=== PATIENT | male | born 1955 | race Hispanic/Latino ===

== ENCOUNTER 2017-06-11 21:39 | Inpatient (IN) | payer MEDICAID, OTHER ==
[2017-06-11] MEDS ORDERED: Naloxone 0.4 mg/ml Inj (Adult) IVP STA (22:00)
--- NOTE | 2017-06-11 22:07 | ED PDOC ---
Arrival/HPI - General Chief Complaint: Altered Mental Status Time Seen by Provider: 06/11/17 21:50 Historian: Patient - History of Present Illness Narrative History of Present Illness (Text): 06/11/17 22:04 William Verma is a 61 year old male, with a history of Parkinson's disease, seizures, and anxiety, was brought to emergency department by EMS for possible overdose on Percocet and Benzodiazepines. Patient was found altered, sitting in front of [employer]. ROS and HPI limited due to patient's condition. Time/Duration: Prior to Arrival Severity Level: Mild Activities at Onset: Light Context: Street Past Medical History - Provider Review Nursing Documentation Reviewed: Yes - Infectious Disease Hx of Infectious Diseases: None - Past Medical History Past Medical History: No Previous - Cardiac Hx Cardiac Disorders: No Hx Hypertension: No - Pulmonary Hx Tuberculosis: No - Neurological Hx Parkinson's Disease: Yes Hx Seizures: Yes - Hematological/Oncological Hx Cancer: No - Musculoskeletal/Rheumatological Hx Back Pain: Yes Hx Falls: No - Genitourinary/Gynecological Hx Sexually Transmitted Diseases: No - Psychiatric Hx Anxiety: Yes Hx Substance Use: Yes - Past Surgical History Past Surgical History: Non-Contributing - Surgical History Hx Orthopedic Surgery: Yes (Right leg) - Anesthesia Hx Anesthesia: Yes Hx Anesthesia Reactions: No Hx Malignant Hyperthermia: No - Suicidal Assessment Feels Threatened In Home Enviroment: No Family/Social History - Physician Review Nursing Documentation Reviewed: Yes Family/Social History: No Known Family HX Smoking Status: Heavy Smoker > 10 Cigarettes Daily Hx Alcohol Use: No Hx Substance Use: Yes Substance used: Heroin Allergies/Home Meds Allergies/Adverse Reactions: Allergies No Known Allergies Allergy (Verified 01/07/17 13:52) Home Medications: Home Meds Medication Instructions Recorded Confirmed Acetaminophen/Oxycodone Hydr 1 tab PO TID 05/25/17 05/25/17 [Percocet 10/325 mg Tab] Alprazolam [Xanax] 2 mg PO QID 05/25/17 06/11/17 Review of Systems - Review of Systems Systems not reviewed;Unavailable: Altered Mental Status Physical Exam Vital Signs Reviewed: Yes Vital Signs Pulse Resp BP Pulse Ox 06/12/17 01:46 59 L 16 124/74 100 06/11/17 23:45 55 L 15 106/74 100 06/11/17 22:36 61 16 103/66 99 Temperature: Afebrile Blood Pressure: Normal Pulse: Regular Respiratory Rate: Normal Appearance: Positive for: Comfortable Pain Distress: None Mental Status: No: Agitated, Lethargic, Comatose - Systems Exam Head: Present: Atraumatic, Normocephalic Pupils: Present: PERRL, Pinpoint Conjunctiva: Present: Normal Respiratory/Chest: Present: Clear to Auscultation, Good Air Exchange. No: Respiratory Distress, Accessory Muscle Use Cardiovascular: Present: Regular Rate and Rhythm, Normal S1, S2. No: Murmurs Neurological: Present: GCS=15, CN II-XII Intact, Speech Normal Skin: Present: Warm, Dry, Normal Color. No: Rashes Psychiatric: Present: Alert, Oriented x 3 Medical Decision Making ED Course and Treatment: 06/11/17 22:08 Impression: A 61 year old male who presents to the emergency department for evaluation of possible drug overdose. Plan: -- CT Head -- EKG -- Labs -- Alcohol level -- Drug screen -- Chest X-ray -- Urinalysis -- Reassess and disposition Progress Notes: 06/11/17 23:46 EXAM: CT Head Without Intravenous Contrast FINDINGS: Brain: Minimal atrophy. Minimal encephalomalacia vs artifact LEFT frontal region. No intracranial hemorrhage. No mass. No definite edema. Ventricles: No hydrocephalus. Bones/joints: No acute fracture. Soft tissues: Unremarkable. Sinuses: Scattered minimal mucosal thickening. Mastoid air cells: No mastoid effusion. Orbits: Unremarkable as visualized. IMPRESSION: 1. No definite acute intracranial abnormality. Acute infarction may be CT occult within first 24 hours. If a focal deficit persists, consider followup CT or MRI for further evaluation. 2. Incidental/non-acute findings are described above 06/12/17 00:[address] Correa who is aware agrees with the plan to admit patient to the ICU for overdose. Pt was evaluated by , observer electrical prospecting, who accepts patient to the ICU. 06/12/17 01:25 EKG reviewed by me: Sinus Bradycardia @ 53 bpm. Normal [place]. Normal interval. - Lab Interpretations Lab Results: 06/11/17 22:15 06/11/17 22:15 Lab Results 06/11/17 23:50: Urine Opiates Screen Positive H, Urine Methadone Screen Negative , Ur Barbiturates Screen Negative, Ur Phencyclidine Scrn Negative, Ur Amphetamines Screen Negative, U Benzodiazepines Scrn Positive H, U Oth Cocaine Metabols Negative, U Cannabinoids Screen Negative 06/11/17 23:47: pCO2 45, pO2 66.0 L, HCO3 24.8, ABG pH 7.35, ABG Total CO2 26.2 , ABG O2 Saturation 95.8, ABG Base Excess -1.1, ABG Potassium 3.0 L, Glucose 135 H, Lactate 1.2, FiO2 21.0, Sodium 145.0, Chloride 117.0 H, Arterial Blood Potassium 3.0 L 06/11/17 22:15: Alcohol, Quantitative < 10 06/11/17 22:15: Salicylates < 1 L, Acetaminophen < 10.0 L 06/11/17 22:15: Sodium 141, Potassium 4.0, Chloride 106, Carbon Dioxide 27, Anion Gap 12, BUN 21, Creatinine 0.9, Est GFR ( Amer) > 60, Est GFR (Non- Af Amer) > 60, Random Glucose 152 H, Calcium 8.6, Total Bilirubin 0.4, AST 65 H , ALT 32, Alkaline Phosphatase 58, Total Creatine Kinase 1085 H, CK-MB (CK-2) 24.9 H, CK-MB (CK-2) % 2.3 L, Total Protein 6.7, Albumin 3.6, Globulin 3.0, Albumin/Globulin Ratio 1.2 06/11/17 22:15: Urine Color Yellow, Urine Appearance Clear, Urine pH 5.5, Ur Specific [place] >= 1.030, Urine Protein Negative, Urine Glucose (UA) Negative, Urine Ketones Negative, Urine Blood Large H, Urine Nitrate Negative, Urine Bilirubin Negative, Urine Urobilinogen 0.2, Ur Leukocyte Esterase Negative, Urine RBC 5 - 10, Urine WBC 0 - 2, Ur Epithelial Cells None, Urine Bacteria Mod 06/11/17 22:15: WBC 7.1, RBC 3.69, Hgb 11.8 L, Hct 34.6 L, MCV 93.8, MCH 32.0, MCHC 34.1, RDW 13.7, Plt Count 168, MPV 10.1, Gran % 62.2, Lymph % (Auto) 26.5, Jack % (Auto) 6.3 H, Eos % (Auto) 4.2, Baso % (Auto) 0.8, Gran # 4.40, Lymph # 1.9, Jack # 0.5, Eos # 0.3, Baso # 0.06 06/11/17 21:57: POC Glucose (mg/dL) 131 H I have reviewed the lab results: Yes - RAD Interpretation Radiology Orders: 06/11/17 22:00 CHEST PORTABLE [RAD] Stat 06/11/17 22:48 HEAD W/O CONTRAST [CT] Stat - EKG Interpretation Interpreted by ED Physician: Yes Type: 12 lead EKG - Medication Orders Current Medication Orders: Folic Acid 1 mg/ Thiamine HCl 100 mg/ Multivitamins/Vitamin C 10 ml/ Dextrose 1 ,011.2 mls @ 100 mls/hr IV .Q10H7M [facility] Last Admin: 06/15/17 00:18 Dose: 100 mls/hr Ketorolac Tromethamine (Toradol) 15 mg IM Q6 PRN PRN Reason: Pain, moderate (4-7) Stop: 06/18/17 07:47 Last Admin: 06/15/17 16:50 Dose: 15 mg Quetiapine Fumarate (Seroquel) 50 mg PO HS PRN; Protocol PRN Reason: psychosis/agitation Last Admin: 06/15/17 21:34 Dose: 50 mg Discontinued Medications Naloxone HCl 10 mg/ Sodium (Chloride) 1,025 mls @ 61.5 mls/hr IV .[id number] ONE PRN Reason: 0.6 MG/HR Stop: 06/12/17 14:39 Last Admin: 06/11/17 23:18 Dose: Sodium Chloride (Sodium Chloride 0.9%) 1,000 mls @ 125 mls/hr IV .Q8H [facility] Last Admin: 06/12/17 01:38 Dose: 125 mls/hr Sodium Chloride (Sodium Chloride 0.9%) 1,000 mls @ 175 mls/hr IV .Q5H43M [facility] Last Admin: 06/12/17 09:33 Dose: 175 mls/hr Naloxone HCl (Narcan) 0.4 mg IVP STAT STA Stop: 06/11/17 22:01 Last Admin: 06/11/17 22:11 Dose: 0.4 mg - Scribe Statement The provider has reviewed the documentation as recorded by the Scribe Sasha Muthuraman Provider Attestation: Provider Scribe Attestation: All medical record entries made by the Scribe were at my direction and personally dictated by me. I have reviewed the chart and agree that the record accurately reflects my personal performance of the history, physical exam, medical decision making, and the department course for this patient. I have also personally directed, reviewed, and agree with the discharge instructions and disposition. Disposition/Present on Arrival - Present on Arrival Any Indicators Present on Arrival: No History of DVT/PE: No History of Uncontrolled Diabetes: No Urinary Catheter: No History of Decub. Ulcer: No History Surgical Site Infection Following: None - Disposition Have Diagnosis and Disposition been Completed?: Yes Diagnosis: Opiate abuse, continuous, Narcotic overdose Disposition: HOSPITALIZED Disposition Time: 00:45 Patient Problems: Current Active Problems Problem Status Onset Drug overdose, multiple drugs Resolved Condition: SERIOUS
[2017-06-11 22:33] LABS: BASO # 0.06 K/mm3 (0.0-2.0); BASO % 0.8 % (0.0-3.0); EOS # 0.3 (0.0-0.7); EOS % 4.2 % (1.5-5.0); GRAN % 62.2 % (50.0-68.0); HEMOGLOBIN 11.8 gm/dL (14.0-18.0); LYMPH # 1.9 (1.2-3.4); LYMPH % 26.5 % (22.0-35.0); MEAN CELL VOLUME 93.8 fL (80.0-105.0); MEAN CORPUSCULAR HGB CONC 34.1 g/dl (31.0-37.0); MEAN PLATELET VOLUME 10.1 fl (7.0-11.0); MONO # 0.5 (0.1-0.6); MONO % 6.3 % (1.0-6.0); PLATELET COUNT 168 10^3/uL (120.0-450.0); RBC 3.69 10^6/uL (3.5-6.1); RED CELL DISTRIBUTION WIDTH 13.7 % (11.5-14.5); WHITE BLOOD COUNT 7.1 10^3/ul (4.5-11.0)
[2017-06-11 22:37] LABS: ALB/GLOB RATIO 1.2 (1.1-1.8); ALBUMIN 3.6 g/dL (3.0-4.8); ALT/SGPT 32 U/L (7-56); AST/SGOT 65 U/L (15-59); BLOOD UREA NITROGEN 21 mg/dL (7-21); CALCIUM 8.6 mg/dL (8.4-10.5); GFR AFRICAN-AMERICAN > 60; GFR NON-AFRICAN AMERICAN > 60; PH,URINE 5.5 (4.7-8.0); SALICYLATE < 1 mg/dL (2.0-20.0); URINE BILIRUBIN NEGATIVE (NEGATIVE); URINE BLOOD LARGE (NEGATIVE); URINE GLUCOSE (UA) NEGATIVE (NEGATIVE); URINE LEUKOCYTE ESTERASE NEGATIVE Leu/uL (NEGATIVE); URINE NITRATE NEGATIVE (NEGATIVE); URINE PROTEIN NEGATIVE mg/dL (<30 mg/dL); URINE UROBILINOGEN 0.2 E.U./dL (<1 E.U./dL)
[2017-06-11 22:38] LABS: ACETAMINOPHEN < 10.0 ug/ml (10.0-20.0); URINE APPEARANCE CLEAR (CLEAR); URINE COLOR YELLOW (YELLOW)
[2017-06-11 22:53] LABS: CK MB% 2.3 % (2.5-3.0); CK-MB 24.9 ng/mL (0.0-3.6)
[2017-06-11 23:09] LABS: URINE BACTERIA MOD (NEG); URINE WBC 0 - 2 /hpf (0-6)
--- NOTE | 2017-06-11 23:37 | CT ---
EXAM: CT Head Without Intravenous Contrast CLINICAL HISTORY: 61 years old, male; Signs and symptoms; Altered mental status/memory loss; Confusion or disorientation; Additional info: AMS TECHNIQUE: Axial computed tomography images of the head/brain without intravenous contrast. This CT exam was performed using one or more of the following dose reduction techniques: automated exposure control, adjustment of the mA and/or kV according to patient size, and/or use of iterative reconstruction technique. COMPARISON: No relevant prior studies available. FINDINGS: Brain: Minimal atrophy. Minimal encephalomalacia vs artifact LEFT frontal region. No intracranial hemorrhage. No mass. No definite edema. Ventricles: No hydrocephalus. Bones/joints: No acute fracture. Soft tissues: Unremarkable. Sinuses: Scattered minimal mucosal thickening. Mastoid air cells: No mastoid effusion. Orbits: Unremarkable as visualized. IMPRESSION: 1. No definite acute intracranial abnormality. Acute infarction may be CT occult within first 24 hours. If a focal deficit persists, consider followup CT or MRI for further evaluation. 2. Incidental/non-acute findings are described above.
[2017-06-11 23:52] LABS: ARTERIAL BLOOD GAS HCO3 24.8 mmol/L (21-28); ARTERIAL BLOOD GAS O2 SAT 95.8 % (95-98); ARTERIAL BLOOD GAS PCO2 45 mm/Hg (35-45); ARTERIAL BLOOD GAS PH 7.35 (7.35-7.45); ARTERIAL BLOOD GAS TCO2 26.2 mmol.L (22-28)
[2017-06-12 00:38] LABS: BARBITURATES, UR NEGATIVE (NEGATIVE); BENZODIAZEPINES, UR POSITIVE (NEGATIVE); OPIATES, UR POSITIVE (NEGATIVE); PHENCYCLIDINE, UR NEGATIVE (NEGATIVE)
[2017-06-12] MEDS ORDERED: Sodium Chloride 0.9% 1,000 ML IV SCH (01:30)
--- NOTE | 2017-06-12 02:21 | CP.PCM.CON ---
<Usama Bose - Last Filed: 06/12/17 04:26> History of Present Illness - History of Present Illness History of Present Illness: CC: Apparent Overdose Patient is a 61 year old male with a PMHX of opioid use disorder, eTOH use disorder, sedative/hypnotic use disorder, parkinson's disease, seizures, and anxiety who was brought in by EMS for evaluation of altered mental status. Patient seen and examined at bedside with attending. Patient is sleeping and cannot be awoken at the time of physical exam despite both verbal and painful stimuli. No friends or family were available at bedside to gain further information. As per Ed chart, the patient was found altered in front a [employer] store secondary to a suspected overdose on percocet and benzodiazepines. ROS and detailed HPI cannot be attained at this time due to patient's current condition. PMHx: as per previous records- Hpl, COPD, Opioid Use Disorder, ETOH use disorder , Sedative, hypnotic use disorder,Parkinson's disease, seizures, and anxiety PSHx: as per Ed chart- right leg orthopedic surgery Allergies: as per previous records- NKDA Family Hx: unknown Medications: please see MAR Review of Systems - Review of Systems Review of Systems: ROS cannot be attained at this time due to patients altered mental status Past Patient History - Infectious Disease Hx of Infectious Diseases: None - Past Medical History & Family History Past Medical History?: Yes - Past Social History Smoking Status: Heavy Smoker > 10 Cigarettes Daily - CARDIAC Hx Cardiac Disorders: No Hx Hypertension: No - PULMONARY Hx Tuberculosis: No - NEUROLOGICAL Hx Parkinson's Disease: Yes Hx Seizures: Yes - HEMATOLOGICAL/ONCOLOGICAL Hx Cancer: No - MUSCULOSKELETAL/RHEUMATOLOGICAL Hx Back Pain: Yes Hx Falls: No - GENITOURINARY/GYNECOLOGICAL Hx Sexually Transmitted Disorders: No - PSYCHIATRIC Hx Anxiety: Yes Hx Substance Use: Yes - SURGICAL HISTORY Hx Orthopedic Surgery: Yes (Right leg) - ANESTHESIA Hx Anesthesia: Yes Hx Anesthesia Reactions: No Hx Malignant Hyperthermia: No Meds Allergies/Adverse Reactions: Allergies Allergy/AdvReac Type Severity Reaction Status Date / Time No Known Allergies Allergy Verified 01/07/17 13:52 - Medications Medications: Current Medications Naloxone HCl 10 mg/ Sodium (Chloride) 1,025 mls @ 61.5 mls/hr IV .[id number] ONE PRN Reason: 0.6 MG/HR Stop: 06/12/17 14:39 Last Admin: 06/11/17 23:18 Dose: Not Given Sodium Chloride (Sodium Chloride 0.9%) 1,000 mls @ 125 mls/hr IV .Q8H [facility] Last Admin: 06/12/17 01:38 Dose: 125 mls/hr Physical Exam - Constitutional Appears: No Acute Distress Additional comments: patient is resting in bed, cannot be awakened despite both verbal and painful stimuli - Head Exam Head Exam: ATRAUMATIC, NORMAL INSPECTION - Eye Exam Additional comments: patient is resting in bed, cannot be awakened despite both verbal and painful stimuli - Neck Exam Neck exam: Positive for: Normal Inspection. Negative for: Thyromegaly - Respiratory Exam Respiratory Exam: Clear to Auscultation Bilateral. absent: Rales, Rhonchi, Wheezes - Cardiovascular Exam Cardiovascular Exam: REGULAR RHYTHM, +S1, +S2 - GI/Abdominal Exam GI & Abdominal Exam: Normal Bowel Sounds, Soft - Extremities Exam Extremities exam: Positive for: normal inspection, pedal pulses present - Neurological Exam Neurological exam: Altered Additional comments: could not be assessed at time of exam due to AMS patient is resting in bed, cannot be awakened despite both verbal and painful stimuli - Psychiatric Exam Additional comments: could not be assessed at time of exam due to AMS - Skin Skin Exam: Warm Results - Vital Signs Recent Vital Signs: Last Vital Signs Temp Pulse 59 L 06/12/17 01:46 Resp 16 06/12/17 01:46 BP 124/74 06/12/17 01:46 Pulse Ox 100 06/12/17 01:46 - Labs Result Diagrams: 06/12/17 03:34 06/12/17 03:34 Assessment & Plan - Assessment and Plan (Free Text) Assessment: Patient is a 61 year old male with a PMHX of opioid use disorder, eTOH use disorder, sedative/hypnotic use disorder, parkinson's disease, seizures, and anxiety who is being admitted for evaluation and treatment of an overdose. 1. Overdose - ICU admit - Neuro checks q1 - Vitals q1 - head of bed above 30 degrees - fall precautions - seizure precautions - blood culture - urine culture - urinalysis - naloxone given in ED - UDS reviewed- positive for benzodiazepines and opiates - hold sedative home medications 2. Anemia - hgb/hct 11.8/ 34.6 - fecal occult blood test - monitor closely with daily CBC 3. Hypoxemia - ABG reviewed - supplemental O2 2L via NC 4. Total CK elevated - IVF NS - recheck CK in AM 5. History of Seizure disorder - seizure precautions 5. Ppx - subq heparin - pantoprazole Patient seen, evaluated, and discussed with attending, Dr. Martinez. <Michelle JURADO,Nicho - Last Filed: 06/15/17 08:32> Meds - Medications Medications: Current Medications Folic Acid 1 mg/ Thiamine HCl 100 mg/ Multivitamins/Vitamin C 10 ml/ Dextrose 1 ,011.2 mls @ 100 mls/hr IV .Q10H7M [facility] Last Admin: 06/15/17 00:18 Dose: 100 mls/hr Ketorolac Tromethamine (Toradol) 15 mg IM Q6 PRN PRN Reason: Pain, moderate (4-7) Stop: 06/18/17 07:47 Last Admin: 06/15/17 04:15 Dose: 15 mg Quetiapine Fumarate (Seroquel) 50 mg PO HS PRN; Protocol PRN Reason: psychosis/agitation Last Admin: 06/14/17 21:10 Dose: 50 mg Results - Vital Signs Recent Vital Signs: Last Vital Signs Temp 99.1 F 06/15/17 02:15 Pulse 67 06/15/17 02:15 Resp 20 06/15/17 02:15 BP 127/85 06/15/17 02:15 Pulse Ox 98 06/15/17 02:15 - Labs Result Diagrams: 06/15/17 05:40 06/15/17 05:40 Labs: Laboratory Results - last 24 hr 06/15/17 06/15/17 05:40 05:40 WBC 7.4 D RBC 3.93 Hgb 12.3 L Hct 36.2 L MCV 92.1 MCH 31.3 MCHC 34.0 RDW 13.5 Plt Count 176 MPV 10.2 Gran % 74.4 H Lymph % (Auto) 16.9 L [place] % (Auto) 6.3 H Eos % (Auto) 2.3 Baso % (Auto) 0.1 Gran # 5.53 Lymph # 1.3 [place] # 0.5 Eos # 0.2 Baso # 0.01 Sodium 141 Potassium 3.8 Chloride 106 Carbon Dioxide 28 Anion Gap 11 BUN 13 Creatinine 0.8 Est GFR ( Amer) > 60 Est GFR (Non-Af Amer) > 60 Random Glucose 108 Calcium 8.5 Total Bilirubin 0.3 AST 53 ALT 60 H Alkaline Phosphatase 58 Total Protein 6.2 Albumin 3.5 Globulin 2.7 Albumin/Globulin Ratio 1.3 Attending/Attestation - Attestation I have personally seen and examined this patient.: Yes I have fully participated in the care of the patient.: Yes I have reviewed all pertinent clinical information: Yes Notes (Text): -I agree with the above consult note completed by the resident physician, with the following additions and/or changes: The patient is a 61 year old man with a history of chronic opioid abuse, chronic ETOH abuse, Parkinson's disease, seizure disorder and anxiety disorder, who presents with acute opioid intoxication with severe AMS/somnolence (In the ED, patient unarousable but able to protect airway). Will monitor patient in the ICU with hourly neuro checks, IVF's, NPO, HOB>30 and fall and seizure precautions.
[2017-06-12 03:04] VITALS: BMI 22.0
[2017-06-12 03:39] LABS: BASO # 0.03 K/mm3 (0.0-2.0); BASO % 0.5 % (0.0-3.0); EOS # 0.3 (0.0-0.7); GRAN # 3.44 (1.4-6.5); GRAN % 61.3 % (50.0-68.0); HEMOGLOBIN 11.4 gm/dL (14.0-18.0); LYMPH # 1.4 (1.2-3.4); LYMPH % 25.7 % (22.0-35.0); MEAN CELL VOLUME 94.9 fL (80.0-105.0); MEAN CORPUSCULAR HEMOGLOBIN 32.2 pg (25.0-35.0); MEAN CORPUSCULAR HGB CONC 33.9 g/dl (31.0-37.0); MEAN PLATELET VOLUME 9.8 fl (7.0-11.0); MONO # 0.4 (0.1-0.6); MONO % 7.5 % (1.0-6.0); PLATELET COUNT 155 10^3/uL (120.0-450.0); RBC 3.54 10^6/uL (3.5-6.1); WHITE BLOOD COUNT 5.6 10^3/ul (4.5-11.0)
[2017-06-12 03:52] LABS: ALB/GLOB RATIO 1.2 (1.1-1.8); ALBUMIN 3.3 g/dL (3.0-4.8); ALT/SGPT 37 U/L (7-56); AST/SGOT 74 U/L (15-59); BLOOD UREA NITROGEN 19 mg/dL (7-21); CALCIUM 8.3 mg/dL (8.4-10.5); GFR AFRICAN-AMERICAN > 60; GFR NON-AFRICAN AMERICAN > 60
[2017-06-12 04:07] LABS: CK MB% 2.4 % (2.5-3.0); CK-MB 32.3 ng/mL (0.0-3.6)
[2017-06-12] MEDS: Sodium Chloride 0.9% 1,000 ML IV SCH ×2 (05:30→09:33)
--- NOTE | 2017-06-12 07:49 | RAD ---
HISTORY: Altered mental status COMPARISON: 07/19/2015 FINDINGS: LUNGS: There are increased interstitial markings in both lungs. No focal consolidation. PLEURA: No significant pleural effusion identified, no pneumothorax apparent. CARDIOVASCULAR: Normal. OSSEOUS STRUCTURES: No significant abnormalities. VISUALIZED UPPER ABDOMEN: Normal. OTHER FINDINGS: None. IMPRESSION: Findings could represent interstitial pneumonitis or interstitial pulmonary edema. Clinical correlation and follow-up is advised. No lobar pneumonia.
[2017-06-12 08:26] LABS: % IRON SATURATION 13 % (20-55); IRON 33 ug/dL (45-180); TOTAL IRON BINDING CAPACITY 259 ug/dL (261-462)
--- NOTE | 2017-06-12 14:20 | CP.PCM.PN ---
<Tamica Campbell - Last Filed: 06/12/17 14:26> Subjective - Date & Time of Evaluation Date of Evaluation: 06/12/17 Time of Evaluation: 14:17 - Subjective Subjective: patient seen and examined at the bedside. patient is resting comfortably. responds to loud questions. Objective - Vital Signs/Intake and Output Vital Signs (last 24 hours): Temp Pulse Resp BP Pulse Ox 97.4 F L 52 L 16 91/55 L 99 06/12/17 12:00 06/12/17 12:00 06/12/17 12:00 06/12/17 12:00 06/12/17 12:00 Intake and Output: 06/12/17 06/12/17 06:59 18:59 Intake Total 700 Output Total 100 Balance 600 - Medications Medications: Current Medications Naloxone HCl 10 mg/ Sodium (Chloride) 1,025 mls @ 61.5 mls/hr IV .[id number] ONE PRN Reason: 0.6 MG/HR Stop: 06/12/17 14:39 Last Admin: 06/11/17 23:18 Dose: Not Given Sodium Chloride (Sodium Chloride 0.9%) 1,000 mls @ 175 mls/hr IV .Q5H43M [facility] Last Admin: 06/12/17 09:33 Dose: 175 mls/hr Folic Acid 1 mg/ Thiamine HCl 100 mg/ Multivitamins/Vitamin C 10 ml/ Dextrose 1 ,011.2 mls @ 100 mls/hr IV .Q10H7M [facility] - Labs Labs: 06/12/17 03:34 06/12/17 03:34 - Constitutional Appears: No Acute Distress - Head Exam Head Exam: ATRAUMATIC, NORMOCEPHALIC - Eye Exam Eye Exam: EOMI, Normal appearance Pupil Exam: PERRL - ENT Exam ENT Exam: Mucous Membranes Moist - Respiratory Exam Respiratory Exam: NORMAL BREATHING PATTERN. absent: Rales, Wheezes - Cardiovascular Exam Cardiovascular Exam: +S1, +S2. absent: Clicks, Gallop - GI/Abdominal Exam GI & Abdominal Exam: Soft, Normal Bowel Sounds. absent: Distended, Guarding - Rectal Exam Rectal Exam: Deferred - Extremities Exam Extremities Exam: Normal Inspection. absent: Pedal Edema - Neurological Exam Neurological Exam: CN II-XII Intact Additional comments: Lethargic, otherwise normal. - Psychiatric Exam Additional comments: Unable to assess, patient sedated on his own home medications. Assessment and Plan - Assessment and Plan (Free Text) Assessment: 61 yo male admitted to the ICU for closer monitoring/airway protection in the setting of potential benzodiazepine/opiod overdose. Plan: Patient is a 61 year old male with a PMHX of opioid use disorder, eTOH use disorder, sedative/hypnotic use disorder, parkinson's disease, seizures, and anxiety who is being admitted for evaluation and treatment of an overdose. Neurologic: ICU admit, neuro checks Vitals q1h, head of bed above 30 degrees , fall precautions, seizure precautions, blood culture urine culture, urinalysis , naloxone given in ED, UDS reviewed- positive for benzodiazepines and opiates hold sedative home medications Heme: Anemia, hgb/hct 11.8/ 34.6, fecal occult blood test, monitor closely with daily CBC Respiratory: Hypoxemia: ABG reviewed, supplemental O2 3L via NC Renal: Total CK elevated, IVF NS, recheck CK in AM DVT/GI prophylaxis: Heparin and Pantoprazole Psych: Consulted Psychiatry, given the patient is clearly being treated for psychaitric issues based on his home medications. Currently, he is less sedated. as well as banana bag. Will monitor for alcohol withdrawal. <Vika JURADO,Siobhan H - Last Filed: 06/12/17 15:34> Objective - Vital Signs/Intake and Output Vital Signs (last 24 hours): Temp Pulse Resp BP Pulse Ox 97.4 F L 52 L 16 91/55 L 99 06/12/17 12:00 06/12/17 12:00 06/12/17 12:00 06/12/17 12:00 06/12/17 12:00 Intake and Output: 06/12/17 06/12/17 06:59 18:59 Intake Total 700 Output Total 100 Balance 600 - Medications Medications: Current Medications Sodium Chloride (Sodium Chloride 0.9%) 1,000 mls @ 175 mls/hr IV .Q5H43M [facility] Last Admin: 06/12/17 09:33 Dose: 175 mls/hr Folic Acid 1 mg/ Thiamine HCl 100 mg/ Multivitamins/Vitamin C 10 ml/ Dextrose 1 ,011.2 mls @ 100 mls/hr IV .Q10H7M [facility] - Labs Labs: 06/12/17 03:34 06/12/17 03:34 Attending/Attestation - Attestation I have personally seen and examined this patient.: Yes I have fully participated in the care of the patient.: Yes I have reviewed all pertinent clinical information, including history, physical exam and plan: Yes Notes (Text): 06/12/17 15:31 61 y/o M admitted for ams in the setting of a toxidrome including benzo, Opioids and alcohol hx Overnight mental status improved , currently following commands and vitals are WNL. Will need Psych consult to evaluate for polypharmacy w/ multiple mood stabilizers and benzo's. Also monitor for withdrawl. Diet resumed and PT/OT cc time 45 min
--- NOTE | 2017-06-12 14:36 | CP.PCM.HP ---
History of Present Illness - History of Present Illness History of Present Illness: 61 yo male h/o DJD on Percocet 10/325 q6h, anxiety disorder on xanax, BIBA after found on street with AMS, given narcan with some response in ED, admitted to ICU for further obs and mgmt, CT head neg for acute bleed/infarct. Pt sl lethargic, arousable at present, denies suicidal ideation, cannot recall any events leading up to hosp Present on Admission - Present on Admission Any Indicators Present on Admission: No Review of Systems - Constitutional Constitutional: Weight Loss - EENT Nose/Mouth/Throat: Change in Voice - Respiratory Respiratory: Dyspnea on Exertion - Musculoskeletal Musculoskeletal: Arthralgias Past Patient History - Infectious Disease Hx of Infectious Diseases: None - Past Medical History & Family History Past Medical History?: Yes - Past Social History Smoking Status: Heavy Smoker > 10 Cigarettes Daily - CARDIAC Hx Cardiac Disorders: No Hx Hypertension: No - PULMONARY Hx Chronic Obstructive Pulmonary Disease (COPD): Yes Hx Tuberculosis: No - NEUROLOGICAL Hx Parkinson's Disease: Yes Hx Seizures: Yes - HEMATOLOGICAL/ONCOLOGICAL Hx Cancer: No - MUSCULOSKELETAL/RHEUMATOLOGICAL Hx Back Pain: Yes Hx Falls: No - GASTROINTESTINAL Hx Gastrointestinal Disorders: No - GENITOURINARY/GYNECOLOGICAL Hx Sexually Transmitted Disorders: No - PSYCHIATRIC Hx Anxiety: Yes Hx Substance Use: Yes - SURGICAL HISTORY Hx Orthopedic Surgery: Yes (Right leg) - ANESTHESIA Hx Anesthesia: Yes Hx Anesthesia Reactions: No Hx Malignant Hyperthermia: No Meds Allergies/Adverse Reactions: Allergies Allergy/AdvReac Type Severity Reaction Status Date / Time No Known Allergies Allergy Verified 01/07/17 13:52 Physical Exam - Constitutional Appears: Chronically Ill - Head Exam Head Exam: ATRAUMATIC, NORMOCEPHALIC - Neck Exam Neck exam: Positive for: Normal Inspection - Respiratory Exam Respiratory Exam: Clear to Auscultation Bilateral, NORMAL BREATHING PATTERN - Cardiovascular Exam Cardiovascular Exam: REGULAR RHYTHM - GI/Abdominal Exam GI & Abdominal Exam: Normal Bowel Sounds, Soft - Extremities Exam Extremities exam: Positive for: normal inspection - Neurological Exam Neurological exam: Altered - Skin Skin Exam: Dry, Warm Results - Vital Signs Recent Vital Signs: Last Vital Signs Temp 97.4 F L 06/12/17 12:00 Pulse 52 L 06/12/17 12:00 Resp 16 06/12/17 12:00 BP 91/55 L 06/12/17 12:00 Pulse Ox 99 06/12/17 12:00 - Labs Result Diagrams: 06/12/17 03:34 06/12/17 03:34 Labs: Laboratory Results - last 24 hr 06/12/17 06/12/17 06/12/17 03:34 03:34 03:34 WBC 5.6 D RBC 3.54 Hgb 11.4 L Hct 33.6 L MCV 94.9 MCH 32.2 MCHC 33.9 RDW 14.0 Plt Count 155 MPV 9.8 Gran % 61.3 Lymph % (Auto) 25.7 Ramsey % (Auto) 7.5 H Eos % (Auto) 5.0 Baso % (Auto) 0.5 Gran # 3.44 Lymph # 1.4 Ramsey # 0.4 Eos # 0.3 Baso # 0.03 Sodium 142 Potassium 3.9 Chloride 107 Carbon Dioxide 29 Anion Gap 10 BUN 19 Creatinine 0.9 Est GFR ( Amer) > 60 Est GFR (Non-Af Amer) > 60 Random Glucose 75 Calcium 8.3 L Iron TIBC % Saturation Ferritin Total Bilirubin 0.3 AST 74 H ALT 37 Alkaline Phosphatase 59 Total Creatine Kinase 1348 H CK-MB (CK-2) 32.3 H CK-MB (CK-2) % 2.4 L Troponin I Total Protein 6.1 Albumin 3.3 Globulin 2.8 Albumin/Globulin Ratio 1.2 Vitamin B12 Acetaminophen < 10.0 L 06/12/17 06/12/17 06/12/17 03:34 08:00 08:00 WBC RBC Hgb Hct MCV MCH MCHC RDW Plt Count MPV Gran % Lymph % (Auto) Ramsey % (Auto) Eos % (Auto) Baso % (Auto) Gran # Lymph # Ramsey # Eos # Baso # Sodium Potassium Chloride Carbon Dioxide Anion Gap BUN Creatinine Est GFR ( Amer) Est GFR (Non-Af Amer) Random Glucose Calcium Iron 33 L TIBC 259 L % Saturation 13 L Ferritin 146.0 Total Bilirubin AST ALT Alkaline Phosphatase Total Creatine Kinase CK-MB (CK-2) CK-MB (CK-2) % Troponin I < 0.01 Total Protein Albumin Globulin Albumin/Globulin Ratio Vitamin B12 249 Acetaminophen 06/12/17 12:20 WBC RBC Hgb Hct MCV MCH MCHC RDW Plt Count MPV Gran % Lymph % (Auto) Ramsey % (Auto) Eos % (Auto) Baso % (Auto) Gran # Lymph # Ramsey # Eos # Baso # Sodium Potassium Chloride Carbon Dioxide Anion Gap BUN Creatinine Est GFR ( Amer) Est GFR (Non-Af Amer) Random Glucose Calcium Iron TIBC % Saturation Ferritin Total Bilirubin AST ALT Alkaline Phosphatase Total Creatine Kinase CK-MB (CK-2) CK-MB (CK-2) % Troponin I < 0.01 Total Protein Albumin Globulin Albumin/Globulin Ratio Vitamin B12 Acetaminophen Assessment & Plan - Assessment and Plan (Free Text) Assessment: altered mental status, r/o drug overdose Plan: monitor in ICU, psych consult - Date & Time Date: 06/12/17 Time: 13:20
[2017-06-12] MEDS: Folic Acid 1 MG, Thiamine 100 MG, Multivitamin (MVI) 10 ML in Dextrose 5% In Water 1,00... IV SCH (16:08)
[2017-06-12 16:18] LABS: FOLATE 10.3 ng/mL
--- NOTE | 2017-06-12 16:46 | CARD ---
APPROVED REPORT EKG Measurement Heart [id number] <Conclusion> Marked sinus bradycardia Abnormal ECG
--- NOTE | 2017-06-12 16:47 | CARD ---
APPROVED REPORT EKG Measurement Heart [id number] <Conclusion> Sinus bradycardia Otherwise normal ECG
[2017-06-12 23:35] LABS: ALB/GLOB RATIO 1.2 (1.1-1.8); ALBUMIN 3.3 g/dL (3.0-4.8); BILIRUBIN,DIRECT 0.2 mg/dL (0.0-0.4)
[2017-06-13 05:47] LABS: BASO # 0.04 K/mm3 (0.0-2.0); BASO % 0.6 % (0.0-3.0); EOS # 0.2 (0.0-0.7); EOS % 2.7 % (1.5-5.0); GRAN # 4.75 (1.4-6.5); GRAN % 71.6 % (50.0-68.0); HEMOGLOBIN 12.2 gm/dL (14.0-18.0); LYMPH # 1.3 (1.2-3.4); LYMPH % 19.4 % (22.0-35.0); MEAN CORPUSCULAR HEMOGLOBIN 31.6 pg (25.0-35.0); MEAN CORPUSCULAR HGB CONC 33.6 g/dl (31.0-37.0); MEAN PLATELET VOLUME 10.4 fl (7.0-11.0); MONO # 0.4 (0.1-0.6); MONO % 5.7 % (1.0-6.0); PLATELET COUNT 172 10^3/uL (120.0-450.0); RBC 3.86 10^6/uL (3.5-6.1); RED CELL DISTRIBUTION WIDTH 13.7 % (11.5-14.5); WHITE BLOOD COUNT 6.6 10^3/ul (4.5-11.0)
[2017-06-13 06:41] LABS: ALB/GLOB RATIO 1.2 (1.1-1.8); ALBUMIN 3.4 g/dL (3.0-4.8); ALT/SGPT 54 U/L (7-56); AST/SGOT 72 U/L (15-59); BLOOD UREA NITROGEN 15 mg/dL (7-21); CALCIUM 8.6 mg/dL (8.4-10.5); GFR AFRICAN-AMERICAN > 60; GFR NON-AFRICAN AMERICAN > 60; MAGNESIUM 2.1 mg/dL (1.7-2.2)
--- NOTE | 2017-06-13 10:29 | CP.PCM.PN ---
Subjective - Date & Time of Evaluation Date of Evaluation: 06/13/17 Time of Evaluation: 09:15 - Subjective Subjective: awake and responsive, nad Objective - Vital Signs/Intake and Output Vital Signs (last 24 hours): Temp Pulse Resp BP Pulse Ox 98.2 F 68 17 129/80 99 06/13/17 08:00 06/13/17 10:10 06/13/17 10:10 06/13/17 10:00 06/13/17 10:10 Intake and Output: 06/13/17 06/13/17 06:59 18:59 Intake Total 1700 460 Output Total 750 540 Balance 950 -80 - Medications Medications: Current Medications Folic Acid 1 mg/ Thiamine HCl 100 mg/ Multivitamins/Vitamin C 10 ml/ Dextrose 1 ,011.2 mls @ 100 mls/hr IV .Q10H7M [facility] Last Admin: 06/12/17 16:08 Dose: 100 mls/hr Ketorolac Tromethamine (Toradol) 15 mg IM Q6 PRN PRN Reason: Pain, moderate (4-7) Stop: 06/18/17 07:47 Last Admin: 06/13/17 08:10 Dose: 15 mg Quetiapine Fumarate (Seroquel) 50 mg PO HS PRN; Protocol PRN Reason: psychosis/agitation - Labs Labs: 06/13/17 05:00 06/13/17 04:50 - Respiratory Exam Respiratory Exam: Clear to Ausculation Bilateral, NORMAL BREATHING PATTERN - Cardiovascular Exam Cardiovascular Exam: REGULAR RHYTHM - GI/Abdominal Exam GI & Abdominal Exam: Soft, Normal Bowel Sounds - Extremities Exam Extremities Exam: Normal Inspection - Neurological Exam Neurological Exam: Alert, Awake, Oriented x3 - Psychiatric Exam Psychiatric exam: Normal Mood - Skin Skin Exam: Dry, Warm Assessment and Plan (1) Drug overdose, multiple drugs Status: Acute - Assessment and Plan (Free Text) Plan: psych evchirag, SATHISH for dc planning
[2017-06-13] MEDS: Folic Acid 1 MG, Thiamine 100 MG, Multivitamin (MVI) 10 ML in Dextrose 5% In Water 1,00... IV SCH (16:04)
[2017-06-14] MEDS: Folic Acid 1 MG, Thiamine 100 MG, Multivitamin (MVI) 10 ML in Dextrose 5% In Water 1,00... IV SCH (01:54)
--- NOTE | 2017-06-14 04:12 | CON ---
DATE: 06/13/2017 HISTORY OF PRESENT ILLNESS: The patient is a 61-year-old male with reported history of polysubstance abuse and dependence. The patient was recently discharged from the [facility] on 05/30/2017. The patient was admitted to ICU for evaluation of change in mental status. The patient was found to be agitated in the community. Psych consult was called for evaluation of possible overdose on Percocet and benzodiazepines. The patient has Parkinson disease, seizures as per medical team note. The patient was seen and examined, discussed with the primary care physician, Dr. Correa. The patient presented to be alert, but confused. The patient knows that he is in the hospital, but he does not know what is the name of the hospital. The patient does not know what is the date today. The patient reported that he does not know how he ended up in the hospital. The patient reported ------ he was using substances, he is not sure what he used. The patient states "most likely I was drinking alcohol and most likely I overused Xanax." The patient denies any intent or plan to kill himself prior to coming to the hospital, but looking to get high. The patient reported that he has lot of social issues. The patient is currently homeless. When the patient was asked why he is homeless, the patient stated because of the medical issues. The patient reported to have some hallucinations, but the patient does not appear to be psychotic, does not appear to be internally preoccupied and thought process is goal directed. Besides that, I reviewed previous history. Discharge medications were Lexapro 10 mg daily, Neurontin 300mg twice a day, Seroquel 200 mg at nighttime, trazodone 100 mg at nighttime. The patient was discharged with followup appointment at [facility] and the patient was not following up there. The patient also had court hearing on 05/25. The is charged for possession of drugs, six bags of heroin. Vital signs are stable right now. Temperature 98.2, pulse 66, blood pressure 143/87, respirations 20, O2 saturation is 99. MEDICATIONS: Reviewed. The patient is on banana bag, Toradol, Seroquel, olmesartan 60 mg at the nighttime as needed for psychosis. LABORATORY DATA: Reviewed hematology, hemoglobin 12.2, hematocrit 37.6. Chemistry reviewed, AST and ALT within normal limits, but AST is 72. Urinalysis, blood large. Toxicology positive for opioids as well as benzodiazepines. Notes reviewed. MENTAL STATUS EXAMINATION: The patient appears to be alert, but confused, does not know the name of the hospital, does not know what month and year right now. Intermittent eye contact. Speech was under-productive. The patient has some smacking lip movement, which seems to be chronic. Mood described as "I am withdrawing from multiple stuff." Affect was constricted. Thought process was coherent and goal directed. Thought content, the patient reported some hallucinations, but the patient does not appear to be psychotic. The patient reported that he feels safe in the hospital. The patient denies intent or plan to kill himself or others. Insight and judgement limited. Impulses are well controlled. We tried to discuss case with the nursing staff as well as primary care physician, Dr. Correa. As per nursing staff, there is no agitation, no aggression, no inappropriate behavior. The patient is compliant with the treatment. IMPRESSION: Rule out polysubstance abuse and dependence, rule out substance -induced psychosis, rule out substance-induced mood disorder, rule out substance-induced anxiety disorder. The patient has multiple medical issues. Please see medical team note for more detailed information. PLAN: Continue current management, manager social media evaluation for possible inpatient rehab for withdrawal symptoms like this, talk to ICU physician as well as primary care physician. Obviously, the patient does not have any withdrawal symptoms, but this science writer cannot exclude that the patient might have alcohol withdrawal later on. This science writer will implement Seroquel at nighttime for confusion, agitation, and psychotic symptoms. This science writer will follow up on this patient tomorrow. This science writer will not resume discharge medications from the [facility]. ------ 05/30. We will continue current management. We will follow up and write accordingly, but the patient does not present in any distress. Case was discussed with nursing staff as well as primary care physician. Thank you very much for letting us participate in the care of your patient. Catherine Urbina MD [facility] # [id number]
[2017-06-14 07:03] LABS: BASO # 0.01 K/mm3 (0.0-2.0); BASO % 0.2 % (0.0-3.0); EOS # 0.1 (0.0-0.7); EOS % 1.5 % (1.5-5.0); GRAN # 4.07 (1.4-6.5); GRAN % 67.6 % (50.0-68.0); HEMOGLOBIN 12.1 gm/dL (14.0-18.0); LYMPH # 1.5 (1.2-3.4); LYMPH % 24.1 % (22.0-35.0); MEAN CELL VOLUME 92.4 fL (80.0-105.0); MEAN CORPUSCULAR HEMOGLOBIN 31.5 pg (25.0-35.0); MEAN CORPUSCULAR HGB CONC 34.1 g/dl (31.0-37.0); MEAN PLATELET VOLUME 10.5 fl (7.0-11.0); MONO # 0.4 (0.1-0.6); MONO % 6.6 % (1.0-6.0); PLATELET COUNT 174 10^3/uL (120.0-450.0); RBC 3.84 10^6/uL (3.5-6.1); RED CELL DISTRIBUTION WIDTH 13.8 % (11.5-14.5)
[2017-06-14 07:33] LABS: ALB/GLOB RATIO 1.2 (1.1-1.8); ALBUMIN 3.5 g/dL (3.0-4.8); ALT/SGPT 49 U/L (7-56); AST/SGOT 61 U/L (15-59); BLOOD UREA NITROGEN 11 mg/dL (7-21); CALCIUM 8.8 mg/dL (8.4-10.5); GFR AFRICAN-AMERICAN > 60; GFR NON-AFRICAN AMERICAN > 60
--- NOTE | 2017-06-14 16:48 | CP.PCM.PN ---
Subjective - Date & Time of Evaluation Date of Evaluation: 06/14/17 Time of Evaluation: 11:55 - Subjective Subjective: nad Objective - Vital Signs/Intake and Output Vital Signs (last 24 hours): Temp Pulse Resp BP Pulse Ox 97.8 F 58 L 20 163/73 H 96 06/14/17 16:00 06/14/17 16:00 06/14/17 15:50 06/14/17 16:00 06/14/17 16:00 Intake and Output: 06/14/17 06/14/17 06:59 18:59 Intake Total 1440 Output Total 1200 Balance 240 - Medications Medications: Current Medications Folic Acid 1 mg/ Thiamine HCl 100 mg/ Multivitamins/Vitamin C 10 ml/ Dextrose 1 ,011.2 mls @ 100 mls/hr IV .Q10H7M [facility] Last Admin: 06/14/17 01:54 Dose: 100 mls/hr Ketorolac Tromethamine (Toradol) 15 mg IM Q6 PRN PRN Reason: Pain, moderate (4-7) Stop: 06/18/17 07:47 Last Admin: 06/14/17 16:03 Dose: 15 mg Quetiapine Fumarate (Seroquel) 50 mg PO HS PRN; Protocol PRN Reason: psychosis/agitation Last Admin: 06/13/17 22:13 Dose: 50 mg - Labs Labs: 06/14/17 05:40 06/14/17 05:40 - Respiratory Exam Respiratory Exam: Clear to Ausculation Bilateral, NORMAL BREATHING PATTERN - Cardiovascular Exam Cardiovascular Exam: REGULAR RHYTHM - GI/Abdominal Exam GI & Abdominal Exam: Soft, Normal Bowel Sounds - Neurological Exam Neurological Exam: Alert, Awake - Skin Skin Exam: Dry, Warm Assessment and Plan (1) Drug overdose, multiple drugs Status: Acute
--- NOTE | 2017-06-14 17:17 | PN ---
SUBJECTIVE: The patient was followed up today. The patient was clam, cooperative. The patient said that he feels better. The patient reported that he hears voices. He was not able to identify that voice. The patient reports that he was hearing voices for really longtime. Denies command type hallucinations. The patient reports that he had good night sleep. The patient denied thoughts of harming himself or others. Denies intent or plan. Mood reported that he is depressed. Vital signs are stable. MEDICATIONS: Reviewed. LABORATORY DATA: Reviewed. Discussed with the medical staff. The patient does not have any behavioral incident and participating in treatment. MENTAL STATUS EXAMINATION: The patient presented to be alert. Intermittent eye contact. Speech was under-productive, slow volume. Mood described as depressed. Affect was constricted. Thought process was coherent and goal directed. Thought content, the patient denies visual or tactile hallucinations. Reports that he hears voices, but the patient does not appear to be internally and preoccupied or responding to internal stimuli. Insight and judgement limited. Impulses are well controlled. IMPRESSION: Rule out substance-induced psychosis, rule out delirium due to general medical condition. The patient has history of depression, polysubstance abuse and dependence. The patient has a lot of medical issues, please see medical team note for more detailed information. PLAN: Continue current management, Seroquel 50 mg at the nighttime was resumed. grey roll worker evaluation recommended. The patient expressed his interest to go to inpatient rehab. In the meanwhile, continue current management. We will follow up and advise accordingly. Should they have any questions give me a call back. Catherine Urbina MD
[2017-06-15] MEDS: Folic Acid 1 MG, Thiamine 100 MG, Multivitamin (MVI) 10 ML in Dextrose 5% In Water 1,00... IV SCH (00:18)
[2017-06-15 06:54] LABS: BASO # 0.01 K/mm3 (0.0-2.0); BASO % 0.1 % (0.0-3.0); EOS # 0.2 (0.0-0.7); EOS % 2.3 % (1.5-5.0); GRAN # 5.53 (1.4-6.5); GRAN % 74.4 % (50.0-68.0); HEMOGLOBIN 12.3 gm/dL (14.0-18.0); LYMPH # 1.3 (1.2-3.4); LYMPH % 16.9 % (22.0-35.0); MEAN CELL VOLUME 92.1 fL (80.0-105.0); MEAN CORPUSCULAR HEMOGLOBIN 31.3 pg (25.0-35.0); MEAN PLATELET VOLUME 10.2 fl (7.0-11.0); MONO # 0.5 (0.1-0.6); MONO % 6.3 % (1.0-6.0); PLATELET COUNT 176 10^3/uL (120.0-450.0); RBC 3.93 10^6/uL (3.5-6.1); RED CELL DISTRIBUTION WIDTH 13.5 % (11.5-14.5); WHITE BLOOD COUNT 7.4 10^3/ul (4.5-11.0)
[2017-06-15 07:05] LABS: ALB/GLOB RATIO 1.3 (1.1-1.8); ALBUMIN 3.5 g/dL (3.0-4.8); ALT/SGPT 60 U/L (7-56); AST/SGOT 53 U/L (15-59); BLOOD UREA NITROGEN 13 mg/dL (7-21); CALCIUM 8.5 mg/dL (8.4-10.5); GFR AFRICAN-AMERICAN > 60; GFR NON-AFRICAN AMERICAN > 60
--- NOTE | 2017-06-15 11:18 | CP.PCM.PN ---
Subjective - Date & Time of Evaluation Date of Evaluation: 06/15/17 Time of Evaluation: 10:45 - Subjective Subjective: NAD Objective - Vital Signs/Intake and Output Vital Signs (last 24 hours): Temp Pulse Resp BP Pulse Ox 99.1 F 67 20 127/85 98 06/15/17 02:15 06/15/17 02:15 06/15/17 02:15 06/15/17 02:15 06/15/17 02:15 Intake and Output: 06/15/17 06/15/17 06:59 18:59 Intake Total 1430 Output Total 300 Balance 1130 - Medications Medications: Current Medications Folic Acid 1 mg/ Thiamine HCl 100 mg/ Multivitamins/Vitamin C 10 ml/ Dextrose 1 ,011.2 mls @ 100 mls/hr IV .Q10H7M [facility] Last Admin: 06/15/17 00:18 Dose: 100 mls/hr Ketorolac Tromethamine (Toradol) 15 mg IM Q6 PRN PRN Reason: Pain, moderate (4-7) Stop: 06/18/17 07:47 Last Admin: 06/15/17 10:21 Dose: 15 mg Quetiapine Fumarate (Seroquel) 50 mg PO HS PRN; Protocol PRN Reason: psychosis/agitation Last Admin: 06/14/17 21:10 Dose: 50 mg - Labs Labs: 06/15/17 05:40 06/15/17 05:40 - Cardiovascular Exam Cardiovascular Exam: REGULAR RHYTHM - GI/Abdominal Exam GI & Abdominal Exam: Soft, Normal Bowel Sounds - Extremities Exam Extremities Exam: Full ROM - Neurological Exam Neurological Exam: Alert, Awake Assessment and Plan (1) Drug overdose, multiple drugs Status: Resolved - Assessment and Plan (Free Text) Plan: for dc planning
--- NOTE | 2017-06-15 23:19 | PN ---
DATE: PSYCHIATRIST: Dr. Thornton. SUBJECTIVE: The patient was followed up today. The patient presented . The patient was alert and oriented. The patient says that he feels much better. The patient is concerned about his discharge plan. This short story writer spoke to adoption social worker and plan is to send the patient to inpatient rehab for his addicted problems, besides that there is no behavioral incidents. The patient is compliant with the medication. No psychosis. No aggression. The patient is socially appropriate. PHYSICAL EXAMINATION: VITAL SIGNS: This short story writer reviewed vital signs. Vital signs seems to be stable. MEDICATIONS: Reviewed. The patient is on multivitamins, thiamine, folic acid, Toradol, as well as Seroquel 50 mg at nighttime as needed for psychosis and agitation. LABORATORY DATA: Labs reviewed and seems to be stable. Chemistry reviewed. Toxicology reviewed, although it is positive and benzodiazepines were positive at the time of admission. MENTAL STATUS EXAMINATION: The patient appears to be alert and oriented, pleasant and cooperative. Fair eye contact. Speech was normal rate, tone, quality, and quantity. Mood described, I am feeling fine, I just want to make sure that I have roof over my head. Affect was active. Mood congruent. Thought process was coherent and goal directed. Thought content, the patient denied visual, auditory, or tactile hallucinations. Denies paranoid ideation. The patient denied thoughts of harming himself or others. Denied intents or plan. The patient has future oriented plans. The patient wants to go to inpatient rehab as well as maintain his sobriety. Insight and judgement improving. Impulses are low controlled. IMPRESSION: The patient has history of polysubstance abuse and dependence. The patient was found to have an unintentional overdose on drugs and the patient was agitated in the community, but the patient's delirium stage is improving very much so. The patient is not depressed. The patient is not psychotic and doing much better in regards to the medical problems. PLAN: Continue current management. Continue current medications. This short story writer discussed the case with the adoption social worker as well as case management. Most likely, the patient will go to inpatient rehab. The patient deemed to be not in danger to self or others. This short story writer will sign off. Should they have any questions, give me a call back. Thank you very much for letting me to participate in the care of your patient. Catherine Urbina MD
[2017-06-16 07:15] LABS: BASO # 0.01 K/mm3 (0.0-2.0); BASO % 0.1 % (0.0-3.0); EOS # 0.1 (0.0-0.7); EOS % 1.2 % (1.5-5.0); GRAN # 4.99 (1.4-6.5); GRAN % 67.4 % (50.0-68.0); HEMOGLOBIN 13.4 gm/dL (14.0-18.0); LYMPH # 1.8 (1.2-3.4); LYMPH % 24.3 % (22.0-35.0); MEAN CELL VOLUME 92.4 fL (80.0-105.0); MEAN CORPUSCULAR HGB CONC 34.6 g/dl (31.0-37.0); MEAN PLATELET VOLUME 10.1 fl (7.0-11.0); MONO # 0.5 (0.1-0.6); PLATELET COUNT 198 10^3/uL (120.0-450.0); RBC 4.19 10^6/uL (3.5-6.1); RED CELL DISTRIBUTION WIDTH 13.6 % (11.5-14.5); WHITE BLOOD COUNT 7.4 10^3/ul (4.5-11.0)
[2017-06-16 07:26] LABS: ALB/GLOB RATIO 1.2 (1.1-1.8); ALBUMIN 3.9 g/dL (3.0-4.8); ALT/SGPT 58 U/L (7-56); AST/SGOT 43 U/L (15-59); BLOOD UREA NITROGEN 12 mg/dL (7-21); CALCIUM 9.2 mg/dL (8.4-10.5); GFR AFRICAN-AMERICAN > 60; GFR NON-AFRICAN AMERICAN > 60
--- NOTE | 2017-06-16 10:27 | CP.PCM.PN ---
Subjective - Date & Time of Evaluation Date of Evaluation: 06/16/17 Time of Evaluation: 10:15 - Subjective Subjective: NAD Objective - Vital Signs/Intake and Output Vital Signs (last 24 hours): Temp Pulse Resp BP Pulse Ox 99.3 F 61 18 155/97 H 99 06/16/17 09:01 06/16/17 09:01 06/16/17 09:01 06/16/17 09:01 06/16/17 09:01 Intake and Output: 06/16/17 06/16/17 06:59 18:59 Intake Total 540 Output Total 700 Balance -160 - Medications Medications: Current Medications Meloxicam (Mobic) 15 mg PO DAILY [facility] Nicotine (Nicoderm Cq) 1 patch TD DAILY [facility] Quetiapine Fumarate (Seroquel) 50 mg PO HS PRN; Protocol PRN Reason: psychosis/agitation Last Admin: 06/15/17 21:34 Dose: 50 mg - Labs Labs: 06/16/17 06:00 06/16/17 06:00 - Respiratory Exam Respiratory Exam: Clear to Ausculation Bilateral, NORMAL BREATHING PATTERN - Cardiovascular Exam Cardiovascular Exam: REGULAR RHYTHM - GI/Abdominal Exam GI & Abdominal Exam: Soft, Normal Bowel Sounds - Neurological Exam Neurological Exam: Alert, Awake - Skin Skin Exam: Dry, Warm Assessment and Plan (1) Drug overdose, multiple drugs Status: Resolved - Assessment and Plan (Free Text) Plan: dc IV fluid, dc toradol IM, meloxicam 15qd, SW for dc planning
[2017-06-17 07:21] LABS: ALB/GLOB RATIO 1.2 (1.1-1.8); ALBUMIN 3.3 g/dL (3.0-4.8); ALT/SGPT 45 U/L (7-56); AST/SGOT 26 U/L (15-59); BLOOD UREA NITROGEN 19 mg/dL (7-21); CALCIUM 8.7 mg/dL (8.4-10.5); GFR AFRICAN-AMERICAN > 60; GFR NON-AFRICAN AMERICAN > 60
[2017-06-17 07:34] LABS: BASO # 0.03 K/mm3 (0.0-2.0); BASO % 0.4 % (0.0-3.0); EOS # 0.3 (0.0-0.7); EOS % 4.8 % (1.5-5.0); GRAN # 3.55 (1.4-6.5); GRAN % 52.7 % (50.0-68.0); HEMOGLOBIN 11.7 gm/dL (14.0-18.0); LYMPH # 2.3 (1.2-3.4); LYMPH % 33.6 % (22.0-35.0); MEAN CELL VOLUME 93.5 fL (80.0-105.0); MEAN CORPUSCULAR HEMOGLOBIN 31.8 pg (25.0-35.0); MEAN PLATELET VOLUME 9.8 fl (7.0-11.0); MONO # 0.6 (0.1-0.6); MONO % 8.5 % (1.0-6.0); PLATELET COUNT 176 10^3/uL (120.0-450.0); RBC 3.68 10^6/uL (3.5-6.1); RED CELL DISTRIBUTION WIDTH 13.8 % (11.5-14.5); WHITE BLOOD COUNT 6.7 10^3/ul (4.5-11.0)
--- NOTE | 2017-06-17 11:05 | CP.PCM.PN ---
Subjective - Date & Time of Evaluation Date of Evaluation: 06/17/17 Time of Evaluation: 10:40 - Subjective Subjective: c/o anxiety, otherwise NAD Objective - Vital Signs/Intake and Output Vital Signs (last 24 hours): Temp Pulse Resp BP Pulse Ox 98.6 F 58 L 19 100/61 98 06/17/17 08:16 06/17/17 08:16 06/17/17 08:16 06/17/17 08:16 06/17/17 08:16 Intake and Output: 06/17/17 06/17/17 06:59 18:59 Intake Total 240 Balance 240 - Medications Medications: Current Medications Meloxicam (Mobic) 15 mg PO DAILY [facility] Last Admin: 06/17/17 09:22 Dose: 15 mg Nicotine (Nicoderm Cq) 1 patch TD DAILY [facility] Last Admin: 06/17/17 09:22 Dose: 1 patch Quetiapine Fumarate (Seroquel) 50 mg PO HS PRN; Protocol PRN Reason: psychosis/agitation Last Admin: 06/16/17 22:08 Dose: 50 mg - Labs Labs: 06/17/17 06:30 06/17/17 06:30 - Respiratory Exam Respiratory Exam: Clear to Ausculation Bilateral, NORMAL BREATHING PATTERN - Cardiovascular Exam Cardiovascular Exam: REGULAR RHYTHM - GI/Abdominal Exam GI & Abdominal Exam: Soft, Normal Bowel Sounds - Extremities Exam Extremities Exam: Full ROM, Normal Inspection - Back Exam Back Exam: NORMAL INSPECTION - Neurological Exam Neurological Exam: Alert, Awake - Psychiatric Exam Psychiatric exam: Anxious - Skin Skin Exam: Dry, Warm Assessment and Plan (1) Drug overdose, multiple drugs Status: Resolved - Assessment and Plan (Free Text) Plan: start celexa 10mg qd, SW for dc planning
[2017-06-18 06:58] VITALS: RESP 20
[2017-06-18 07:20] VITALS: BP 145/84; PULSE 56; TEMP 97.7; O2SAT 98
[2017-06-18 07:40] LABS: BASO # 0.03 K/mm3 (0.0-2.0); BASO % 0.5 % (0.0-3.0); EOS # 0.3 (0.0-0.7); EOS % 4.5 % (1.5-5.0); GRAN # 3.52 (1.4-6.5); GRAN % 58.5 % (50.0-68.0); HEMOGLOBIN 12.7 gm/dL (14.0-18.0); LYMPH # 1.7 (1.2-3.4); LYMPH % 28.3 % (22.0-35.0); MEAN CELL VOLUME 92.2 fL (80.0-105.0); MEAN CORPUSCULAR HEMOGLOBIN 31.8 pg (25.0-35.0); MEAN CORPUSCULAR HGB CONC 34.5 g/dl (31.0-37.0); MEAN PLATELET VOLUME 9.8 fl (7.0-11.0); MONO # 0.5 (0.1-0.6); MONO % 8.2 % (1.0-6.0); PLATELET COUNT 192 10^3/uL (120.0-450.0); RBC 3.99 10^6/uL (3.5-6.1); RED CELL DISTRIBUTION WIDTH 13.5 % (11.5-14.5)
--- NOTE | 2017-06-18 09:26 | CP.PCM.PN ---
Subjective - Date & Time of Evaluation Date of Evaluation: 06/18/17 Time of Evaluation: 09:15 - Subjective Subjective: NAD Objective - Vital Signs/Intake and Output Vital Signs (last 24 hours): Temp Pulse Resp BP Pulse Ox 97.7 F 56 L 20 145/84 98 06/18/17 08:10 06/18/17 08:10 06/18/17 08:10 06/18/17 08:10 06/18/17 08:10 Intake and Output: 06/18/17 06/18/17 06:59 18:59 Intake Total 540 240 Output Total 550 Balance 540 -310 - Medications Medications: Current Medications Citalopram Hydrobromide (Celexa) 10 mg PO DAILY [facility] Last Admin: 06/17/17 11:30 Dose: 10 mg Meloxicam (Mobic) 15 mg PO DAILY [facility] Last Admin: 06/17/17 09:22 Dose: 15 mg Nicotine (Nicoderm Cq) 1 patch TD DAILY [facility] Last Admin: 06/17/17 09:22 Dose: 1 patch Quetiapine Fumarate (Seroquel) 50 mg PO HS PRN; Protocol PRN Reason: psychosis/agitation Last Admin: 06/17/17 22:07 Dose: 50 mg - Labs Labs: 06/18/17 07:00 06/17/17 06:30 - Respiratory Exam Respiratory Exam: Clear to Ausculation Bilateral, NORMAL BREATHING PATTERN - Cardiovascular Exam Cardiovascular Exam: REGULAR RHYTHM - GI/Abdominal Exam GI & Abdominal Exam: Soft, Normal Bowel Sounds - Extremities Exam Extremities Exam: Normal Inspection - Neurological Exam Neurological Exam: Alert, Awake - Skin Skin Exam: Dry, Warm Assessment and Plan (1) Drug overdose, multiple drugs Status: Resolved - Assessment and Plan (Free Text) Plan: for dc planning
== END 2017-06-18 18:15 | disposition home or self-care (01) | DRG 449 ==
LOC: ED 21:39 → ERH 06-12 00:49 → CCU 06-12 02:18 → 3RSO 06-14 17:06
PROVIDERS: ADMIT Internal Medicine; ATTEND Internal Medicine
DX: T40.2X1A Poisoning by other opioids, accidental (unintentional), initial encounter (principal); T42.4X1A Poisoning by benzodiazepines, accidental (unintentional), initial encounter; R41.82 Altered mental status, unspecified; F11.10 Opioid abuse, uncomplicated; G20 Parkinson's disease; R09.02 Hypoxemia; J44.9 Chronic obstructive pulmonary disease, unspecified; F10.10 Alcohol abuse, uncomplicated; D64.9 Anemia, unspecified; G40.909 Epilepsy, unspecified, not intractable, without status epilepticus; F41.9 Anxiety disorder, unspecified; F32.9 Major depressive disorder, single episode, unspecified; F17.210 Nicotine dependence, cigarettes, uncomplicated; Z59.0 Homelessness

== ENCOUNTER 2018-02-20 22:36 | Emergency (ER) | payer MEDICAID, OTHER ==
[2018-02-20 22:54] VITALS: BP 120/73; PULSE 83; RESP 19; TEMP 98.4; O2SAT 97; BMI 25.5
--- NOTE | 2018-02-20 23:14 | ED PDOC ---
Arrival/HPI - General Chief Complaint: Back Pain Time Seen by Provider: 02/20/18 22:45 Historian: Patient - History of Present Illness Narrative History of Present Illness (Text): 02/20/18 23:09 62yo male who was bib EMS for left sided lower back pain, headache and left foot pain. He states that he tripped over a pot hole yesterday and fell landing on his left back side. States pain started immediately s/p and he came to Emergency department tonight for the persistent pain. Pain is worse with any movement. He did not take any pain medication. He states he hit his head on the ground. Denies LOC, nausea, vomiting, visual changes, focal weakness, urinary/ fecal incontinence, any other complaint. Past Medical History - Provider Review Nursing Documentation Reviewed: Yes - Infectious Disease Hx of Infectious Diseases: None - Past Medical History Past Medical History: No Previous - Cardiac Hx Cardiac Disorders: No - Pulmonary Hx Respiratory Disorders: Yes Hx Chronic Obstructive Pulmonary Disease (COPD): Yes - Neurological Hx Neurological Disorder: Yes Hx Parkinson's Disease: Yes Hx Seizures: Yes - HEENT Hx HEENT Disorder: No - Renal Hx Renal Disorder: No - Endocrine/Metabolic Hx Endocrine Disorders: No - Hematological/Oncological Hx Blood Disorders: No - Integumentary Hx Dermatological Disorder: No - Musculoskeletal/Rheumatological Hx Musculoskeletal Disorders: Yes Hx Back Pain: Yes - Gastrointestinal Hx Gastrointestinal Disorders: No - Genitourinary/Gynecological Hx Genitourinary Disorders: No - Psychiatric Hx Psychophysiologic Disorder: Yes Hx Anxiety: Yes Hx Bipolar Disorder: Yes Hx Depression: Yes Hx Schizophrenia: Yes Hx Substance Use: Yes - Past Surgical History Past Surgical History: Non-Contributing - Surgical History Hx Orthopedic Surgery: Yes (Right leg) - Anesthesia Hx Anesthesia: Yes Hx Anesthesia Reactions: No Hx Malignant Hyperthermia: No - Suicidal Assessment Feels Threatened In Home Enviroment: No Family/Social History - Physician Review Nursing Documentation Reviewed: Yes Family/Social History: Unknown Family HX Smoking Status: Heavy Smoker > 10 Cigarettes Daily Hx Alcohol Use: Yes Hx Substance Use: Yes Substance used: percocet Allergies/Home Meds Allergies/Adverse Reactions: Allergies No Known Allergies Allergy (Verified 12/03/17 19:46) Review of Systems - Physician Review All systems were reviewed & negative as marked: Yes - Review of Systems Constitutional: Normal Eyes: Normal ENT: Normal Respiratory: Normal Cardiovascular: Normal Gastrointestinal: Normal Genitourinary Male: Normal Musculoskeletal: Arthralgias (LEft foot pain), Back Pain Skin: Normal Neurological: Headache. absent: Dizziness, Focal Weakness Endocrine: Normal Hemo/Lymphatic: Normal Psychiatric: Normal Physical Exam Vital Signs Reviewed: Yes Vital Signs Temp Pulse Resp BP Pulse Ox 02/20/18 22:51 98.4 F 83 19 120/73 97 Temperature: Afebrile Blood Pressure: Normal Pulse: Regular Respiratory Rate: Normal Appearance: Positive for: Well-Appearing, Non-Toxic, Comfortable Pain Distress: None Mental Status: Positive for: Alert and Oriented X 3 - Systems Exam Head: Present: Atraumatic, Normocephalic Pupils: Present: PERRL Extroacular Muscles: Present: EOMI Conjunctiva: Present: Normal Mouth: Present: Moist Mucous Membranes Neck: Present: Normal Range of Motion Respiratory/Chest: Present: Clear to Auscultation, Good Air Exchange. No: Respiratory Distress, Accessory Muscle Use Cardiovascular: Present: Regular Rate and Rhythm, Normal S1, S2. No: Murmurs Abdomen: No: Tenderness, Distention, Peritoneal Signs Back: Present: Paraspinal Tenderness (Left paralumbar tenderness), Pain with Leg Raise (LEft leg). No: Midline Tenderness Upper Extremity: Present: Normal Inspection. No: Cyanosis, Edema Lower Extremity: Present: NORMAL PULSES, Normal ROM, Neurovascularly Intact. No : Edema, Tenderness, Swelling, Deformity Neurological: Present: GCS=15, CN II-XII Intact, Speech Normal, Motor Func Grossly Intact, Normal Sensory Function, Normal Cerebellar Funct, Norm Deep Tendon Reflexes, Memory Normal, Other (No focal neurological deficit) Skin: Present: Warm, Dry, Normal Color. No: Rashes Psychiatric: Present: Alert, Oriented x 3, Normal Insight, Normal Concentration Medical Decision Making ED Course and Treatment: 02/21/18 01:37 Pt in Emergency department for stated history. His pain was controlled in Emergency department wt medication. He is ambulatory. Neurologically intact. LS xray/Left foot/Coccyx/sacreal Xray - No acute fracture Head CT IMPRESSION: 1. There is mild soft tissue swelling/hematoma of the posterior superior scalp. 2. No acute intracranial hemorrhage or acute territorial type infarct. 3. There is a stable small area of encephalomalacia within the inferior left frontal lobe, consistent with an old infarct or brain insult. 4. Paranasal sinus disease is noted above. Result was DW the pt. He was DC home with Naprosyn and flexeril rx. Referred to his PMd/ortho - RAD Interpretation Radiology Orders: 02/20/18 22:57 HEAD W/O CONTRAST [CT] Stat LS SPINE WITH OBL > 18 YRS OLD [RAD] Stat 02/20/18 22:58 FOOT LEFT 3 VIEWS ROUTINE [RAD] Stat 02/20/18 23:33 SACRUM &/or COCCYX (MIN 2VW) [RAD] Stat - Medication Orders Current Medication Orders: Discontinued Medications Tramadol HCl (Ultram) 50 mg PO STAT STA Stop: 02/20/18 22:59 Last Admin: 02/21/18 00:05 Dose: 50 mg MAR Pain Assessment Document 02/21/18 00:05 (Rec: 02/21/18 00:06 [id number]) Pain Reassessment Is this a pain reassessment? Yes Presence of Pain Presence of Pain Yes Pain Scale Used Pain Scale Used Numeric Location Left, Right or Bilateral Bilateral Pain Location Body Site Leg Foot Description Description Constant Aggravating Factors Standing Contant Disposition/Present on Arrival - Present on Arrival Any Indicators Present on Arrival: No History of DVT/PE: No History of Uncontrolled Diabetes: No Urinary Catheter: No History of Decub. Ulcer: No History Surgical Site Infection Following: None - Disposition Have Diagnosis and Disposition been Completed?: Yes Diagnosis: Back pain, Headache Disposition: HOME/ ROUTINE Disposition Time: 00:50 Patient Plan: Discharge Patient Problems: Current Active Problems Problem Status Onset Back pain Acute Headache Acute Condition: STABLE Discharge Instructions (ExitCare): Low Back Pain in Adults, Headache, Adult (DC ) Additional Instructions: Follow up with your Doctor/Orthopedist Return to Emergency department for any new symptoms Prescriptions: Cyclobenzaprine [Cyclobenzaprine HCl] 10 mg PO DAILY #10 tab Naproxen [Naprosyn] 500 mg PO BID #20 tab Referrals: Johnny Correa JD, MD [Primary Care Provider] - Follow up with primary Forms: [employer] ([place])
--- NOTE | 2018-02-21 00:14 | CT ---
EXAM: CT Head Without Intravenous Contrast EXAM DATE/TIME: 02/20/2018 10:57 PM CLINICAL HISTORY: The patient age is 62 years old and is male; Injury or trauma; Fall; Initial encounter; Blunt trauma (contusions or hematomas); Consciousness not specified; Additional info: S/P head injury Facility exam id and description: Ct heads head w/o contrast TECHNIQUE: Axial computed tomography images of the head/brain without intravenous contrast. All CT scans at this facility use one or more dose reduction techniques, viz.: automated exposure control; ma/kV adjustment per patient size (including targeted exams where dose is matched to indication; i.e. head); or iterative reconstruction technique. Coronal and sagittal reformatted images were created and reviewed. COMPARISON: CT - HEAD W/O CONTRAST 2017-06-11 23:03 FINDINGS: Brain: There is a stable small area of hypodense encephalomalacia within the inferior left frontal lobe, consistent with an old infarct or brain insult. The white-benitez differentiation is otherwise preserved demonstrating no acute territorial type infarct. No acute intracranial hemorrhage is seen. Midline shift: There is no midline shift. Ventricles: No ventriculomegaly. Bones/joints: The calvarium demonstrates no evidence for a depressed fracture. Soft tissues: There is mild soft tissue swelling/hematoma of the posterior superior scalp. Vasculature: Minimal atherosclerotic changes are visualized. Sinuses: There is mild mucosal thickening of scattered ethmoid air cells and the frontal sinus. Mastoid air cells: No mastoid effusion. IMPRESSION: 1. There is mild soft tissue swelling/hematoma of the posterior superior scalp. 2. No acute intracranial hemorrhage or acute territorial type infarct. 3. There is a stable small area of encephalomalacia within the inferior left frontal lobe, consistent with an old infarct or brain insult. 4. Paranasal sinus disease is noted above.
--- NOTE | 2018-02-21 08:40 | RAD ---
PROCEDURE: Radiographs of the Lumbar Spine. HISTORY: back pain s/p trauma COMPARISON: No prior. FINDINGS: BONES: Diffuse spondylosis No listhesis. No fracture. Bilateral L5-S1 minimal hypertrophic arthrosis. Left sacroiliac mild sclerotic arthrosis DISC SPACES: Per non oblique frontal view L4-5 and L5-S1 disc space narrowing OTHER FINDINGS: Atherosclerotic vascular calcifications present. . IMPRESSION: No fracture Lumbar spondylosis. -multifocal arthrosis elsewhere
--- NOTE | 2018-02-21 08:47 | RAD ---
PROCEDURE: Radiographs of the Sacrum and Coccyx HISTORY: sacral pain s/p trauma COMPARISON: None available. TECHNIQUE: Frontal and lateral views of the sacrum and coccyx FINDINGS: BONES: Sacrum and coccyx unremarkable. No fracture or focal lesion. Decreased sacral overall bone mineralization with overlying bowel gas impedes optimal evaluation. SACROILIAC JOINTS: Minimal left sacroiliac joint arthrosis. OTHER FINDINGS: Inferior lumbar spondylosis and L5-S1 disc space narrowing. IMPRESSION: No fracture appreciated. Sacral osteopenia limiting optimal evaluation. Lumbosacral spondylosis and degenerative disc disease. Minimal left sacroiliac sclerotic arthrosis
--- NOTE | 2018-02-21 08:57 | RAD ---
PROCEDURE: Left Foot Radiographs. HISTORY: foot pain s/p truama COMPARISON: None. FINDINGS: BONES: No acute fracture appreciated. Bony deformity 5th digit proximal phalanx -old healed trauma here inferred. Multiple accessory ossifications centers - border the medial navicular bone Bony exostoses medial cuneiform and larger 1st distal phalanx. 1st metatarsal joint space narrowing -osteoarthrosis 1st metatarsal head subcortical coalescence cystic changes. Achilles tendon insertional enthesophyte noted. JOINTS: 1st metatarsal joint space narrowing -osteoarthrosis SOFT TISSUES: Normal. OTHER FINDINGS: None. IMPRESSION: No acute fracture. Old fracture with healed deformity 5th proximal phalangeal. 1st metatarsal joint space narrowing -osteoarthrosis
== END 2018-02-21 01:08 | disposition home or self-care (01) ==
LOC: ED 22:36
DX: M54.5 Low back pain (principal); R51 Headache

== ENCOUNTER 2018-03-01 21:56 | Emergency (ER) | payer MEDICAID ==
[2018-03-01 22:07] VITALS: BMI 28.0
[2018-03-01 22:22] VITALS: RESP 18
--- NOTE | 2018-03-01 22:51 | ED PDOC ---
Arrival/HPI - General Chief Complaint: Alcohol Ingestion Time Seen by Provider: 03/01/18 22:00 Historian: Patient - History of Present Illness Narrative History of Present Illness (Text): 03/01/18 22:48 William Verma is a 62 year old male, whose past medical history includes chronic pain, hyperlipidemia, alcohol abuse, and substance abuse, who presents to the emergency department brought in by EMS for alcohol intoxication. Patient found outside inebriated. Patient admits to drinking alcohol tonight. Limited HPI and ROS secondary to patient's intoxication. Symptom Onset: Gradual Symptom Course: Unchanged Activities at Onset: Light Context: Home Past Medical History - Provider Review Nursing Documentation Reviewed: Yes - Infectious Disease Hx of Infectious Diseases: None - Past Medical History Past Medical History: No Previous - Cardiac Hx Cardiac Disorders: No - Pulmonary Hx Respiratory Disorders: Yes Hx Chronic Obstructive Pulmonary Disease (COPD): Yes - Neurological Hx Neurological Disorder: Yes Hx Parkinson's Disease: Yes Hx Seizures: Yes - HEENT Hx HEENT Disorder: No - Renal Hx Renal Disorder: No - Endocrine/Metabolic Hx Endocrine Disorders: No - Hematological/Oncological Hx Blood Disorders: No - Integumentary Hx Dermatological Disorder: No - Musculoskeletal/Rheumatological Hx Musculoskeletal Disorders: Yes Hx Back Pain: Yes - Gastrointestinal Hx Gastrointestinal Disorders: No - Genitourinary/Gynecological Hx Genitourinary Disorders: No - Psychiatric Hx Psychophysiologic Disorder: Yes Hx Anxiety: Yes Hx Bipolar Disorder: Yes Hx Depression: Yes Hx Schizophrenia: Yes Hx Substance Use: Yes - Past Surgical History Past Surgical History: Non-Contributing - Surgical History Hx Orthopedic Surgery: Yes (Right leg) - Anesthesia Hx Anesthesia: Yes Hx Anesthesia Reactions: No Hx Malignant Hyperthermia: No - Suicidal Assessment Feels Threatened In Home Enviroment: No Family/Social History - Physician Review Nursing Documentation Reviewed: Yes Family/Social History: Unknown Family HX Smoking Status: Heavy Smoker > 10 Cigarettes Daily Hx Alcohol Use: Yes Hx Substance Use: Yes Substance used: percocet Allergies/Home Meds Allergies/Adverse Reactions: Allergies No Known Allergies Allergy (Verified 03/01/18 22:07) Review of Systems - Review of Systems Systems not reviewed;Unavailable: Intoxicated Physical Exam Vital Signs Reviewed: Yes Vital Signs Temp Pulse Resp BP Pulse Ox 03/02/18 06:19 98.1 F 72 18 105/72 98 03/02/18 03:25 85 18 110/78 98 03/01/18 22:15 97.8 F 82 18 104/72 Temperature: Afebrile Blood Pressure: Normal Pulse: Regular Respiratory Rate: Normal Appearance: Positive for: Well-Appearing, Other (grossly inebriated) Pain Distress: None Mental Status: Positive for: other (Drowsy but arousable) - Systems Exam Head: Present: Atraumatic, Normocephalic Pupils: Present: PERRL Extroacular Muscles: Present: EOMI Conjunctiva: Present: Normal Mouth: Present: Moist Mucous Membranes Neck: Present: Normal Range of Motion Respiratory/Chest: Present: Clear to Auscultation, Good Air Exchange. No: Respiratory Distress, Accessory Muscle Use Cardiovascular: Present: Regular Rate and Rhythm, Normal S1, S2. No: Murmurs Abdomen: No: Tenderness, Distention, Peritoneal Signs Back: Present: Normal Inspection Upper Extremity: Present: Normal Inspection. No: Cyanosis, Edema Lower Extremity: Present: Normal Inspection. No: Edema Neurological: Present: GCS=15, CN II-XII Intact Skin: Present: Warm, Dry, Normal Color. No: Rashes Psychiatric: Present: Intoxicated (Grossly inebriated), Other (Drowsy but arousable) Medical Decision Making ED Course and Treatment: 03/01/18 22:48 Impression: 62 year old male brought in for alcohol intoxication tonight. Differential Diagnosis included but are not limited to: alcohol intoxication Plan: -- Reassess and disposition Progress Notes: 03/02/18 06:13 Pt awake, alert, ambulating with steady gait. Clinically sober, in no acute distress. Patient is stable for discharge. Patient was instructed to follow up with physician or return if symptoms persist/worsen or new concerning symptoms arise. - Scribe Statement The provider has reviewed the documentation as recorded by the Wen Motley Provider Scribe Attestation: All medical record entries made by the Scribchristiano were at my direction and personally dictated by me. I have reviewed the chart and agree that the record accurately reflects my personal performance of the history, physical exam, medical decision making, and the department course for this patient. I have also personally directed, reviewed, and agree with the discharge instructions and disposition. Disposition/Present on Arrival - Present on Arrival Any Indicators Present on Arrival: No History of DVT/PE: No History of Uncontrolled Diabetes: No Urinary Catheter: No History of Decub. Ulcer: No History Surgical Site Infection Following: None - Disposition Have Diagnosis and Disposition been Completed?: Yes Diagnosis: Alcohol abuse Disposition: HOME/ ROUTINE Disposition Time: 06:11 Patient Plan: Discharge Condition: GOOD Discharge Instructions (ExitCare): Alcohol Abuse and Alcoholism (DC) Referrals: Alcoholics Anonymous [Outside] - Follow up with primary Forms: [email or web address] (Romanian)
[2018-03-02 05:26] VITALS: O2SAT 98
[2018-03-02 06:25] VITALS: BP 105/72; PULSE 72; TEMP 98.1
== END 2018-03-02 06:29 | disposition home or self-care (01) ==
LOC: ED 21:56
DX: F10.129 Alcohol abuse with intoxication, unspecified (principal); F17.210 Nicotine dependence, cigarettes, uncomplicated; E78.5 Hyperlipidemia, unspecified; F20.9 Schizophrenia, unspecified; G20 Parkinson's disease

== ENCOUNTER 2018-05-16 14:19 | Emergency (ER) | payer MEDICAID ==
[2018-05-16 14:21] VITALS: BMI 28.0
[2018-05-16 14:39] VITALS: TEMP 98.5
--- NOTE | 2018-05-16 15:02 | ED PDOC ---
Arrival/HPI - General Chief Complaint: Palpitations Time Seen by Provider: 05/16/18 14:25 Historian: Patient - History of Present Illness Narrative History of Present Illness (Text): 05/16/18 14:57 William Verma is a 62 year old male, whose past medical history includes chronic back, and leg pain, hyperlipidemia, alcohol abuse, and substance abuse, who presents to the emergency department c/o left foot pain for over 3 months. Patient denies recent fall, skin rash, weakness, paresthesias, diplopia, tremors , seizures, GUTIÉRREZ, SOB, chest pain, back pain, abdominal pain, or palpitation. I asked patient about "heart beating fast", patient stated there is "nothing wrong" with his heart. He said he "just want a sandwich, and something to drink " I offered patient x-rays for his chronic pain foot and left hip, but he refused since pain is over 3 months, and he denies recent trauma. Patient noted last beer was 7 days ago. Time/Duration: Other (see hpi) Context: Home Past Medical History - Provider Review Nursing Documentation Reviewed: Yes - Infectious Disease Hx of Infectious Diseases: None - Past Medical History Past Medical History: No Previous - Cardiac Hx Cardiac Disorders: No - Pulmonary Hx Respiratory Disorders: Yes Hx Chronic Obstructive Pulmonary Disease (COPD): Yes - Neurological Hx Neurological Disorder: Yes Hx Parkinson's Disease: Yes Hx Seizures: Yes - HEENT Hx HEENT Disorder: No - Renal Hx Renal Disorder: No - Endocrine/Metabolic Hx Endocrine Disorders: No - Hematological/Oncological Hx Blood Disorders: No - Integumentary Hx Dermatological Disorder: No - Musculoskeletal/Rheumatological Hx Musculoskeletal Disorders: Yes Hx Back Pain: Yes - Gastrointestinal Hx Gastrointestinal Disorders: No - Genitourinary/Gynecological Hx Genitourinary Disorders: No - Psychiatric Hx Psychophysiologic Disorder: Yes Hx Anxiety: Yes Hx Bipolar Disorder: Yes Hx Depression: Yes Hx Schizophrenia: Yes Hx Substance Use: Yes - Past Surgical History Past Surgical History: Non-Contributing - Surgical History Hx Orthopedic Surgery: Yes (Right leg) - Anesthesia Hx Anesthesia: Yes Hx Anesthesia Reactions: No Hx Malignant Hyperthermia: No - Suicidal Assessment Feels Threatened In Home Enviroment: No Family/Social History - Physician Review Nursing Documentation Reviewed: Yes Family/Social History: Other (noncontributory) Smoking Status: Heavy Smoker > 10 Cigarettes Daily Hx Alcohol Use: Yes Frequency of alcohol use: Socially Hx Substance Use: Yes Substance used: percocet Allergies/Home Meds Allergies/Adverse Reactions: Allergies No Known Allergies Allergy (Verified 05/16/18 14:33) Review of Systems - Review of Systems Constitutional: Normal. absent: Fatigue, Weight Change, Fevers, Night Sweats Eyes: Normal ENT: Normal Respiratory: Normal. absent: SOB, Cough Cardiovascular: Normal. absent: Chest Pain, Palpitations, Edema, Calf Pain, FUENTES , Orthopnea, Syncope Gastrointestinal: Normal. absent: Abdominal Pain, Nausea, Vomiting Genitourinary Male: Normal. absent: Dysuria Musculoskeletal: Normal Skin: Normal. absent: Rash Neurological: Normal. absent: Headache, Dizziness, Focal Weakness, Gait Changes , Speech Changes, Facial Droop, Disequilibrium, Seizure Endocrine: Normal Hemo/Lymphatic: Normal Psychiatric: Normal. absent: Depression, Suicidal Ideation Physical Exam Vital Signs Temp Pulse Resp BP Pulse Ox 05/16/18 14:34 98.5 F 81 16 109/77 94 L Temperature: Afebrile Blood Pressure: Normal Pulse: Regular Respiratory Rate: Normal Appearance: Positive for: Well-Appearing, Non-Toxic, Comfortable, Unkept Pain Distress: None Mental Status: Positive for: Alert and Oriented X 3 - Systems Exam Head: Present: Atraumatic, Normocephalic Pupils: Present: PERRL Extroacular Muscles: Present: EOMI Conjunctiva: Present: Normal Mouth: Present: Moist Mucous Membranes Neck: Present: Normal Range of Motion, Trachea Midline. No: Meningeal Signs, MIDLINE TENDERNESS, Paraspinal Tenderness, Lymphadenopathy Respiratory/Chest: Present: Clear to Auscultation, Good Air Exchange. No: Respiratory Distress, Accessory Muscle Use, Wheezes, Retracting, Rhonchi, Tachypneic Cardiovascular: Present: Regular Rate and Rhythm, Normal S1, S2. No: Murmurs Abdomen: No: Tenderness, Distention, Peritoneal Signs, Rebound, Guarding Back: Present: Normal Inspection. No: CVA Tenderness, Midline Tenderness, Paraspinal Tenderness, Pain with Leg Raise, Decubitus Ulcer Upper Extremity: Present: Normal Inspection, Normal ROM, NORMAL PULSES, Neurovascularly Intact, Capillary Refill < 2s. No: Cyanosis, Edema Lower Extremity: Present: Normal Inspection, NORMAL PULSES, Normal ROM, Neurovascularly Intact, Capillary Refill < 2 s, Other (Jackson test was negative. No posterior ankle tenderness. No calf tenderness. No leg swelling) . No: Edema, CALF TENDERNESS, Shilpa's Sign, Tenderness, Swelling, Temperature Abnormalties Neurological: Present: GCS=15, CN II-XII Intact, Speech Normal, Motor Func Grossly Intact, Normal Sensory Function, Normal Cerebellar Funct, Gait Normal, Memory Normal Skin: Present: Warm, Dry, Normal Color. No: Rashes Psychiatric: Present: Alert, Oriented x 3, Normal Insight, Normal Concentration Medical Decision Making ED Course and Treatment: 05/16/18 15:05 Patient came to this ED c/o chronic leg/foot pain x > 3 months. Physical exam was unremarkable. Patient refused x-rays, but he requested a sandwich, and a drink instead. I recommended patient to follow up PMD or clinic in 1-2 days. Patient is alert and oriented x 3, normal speech, and gait. Denies back pain, IV drug use, GI/ incontinence, saddle anesthesias, urinary retention, dizziness, tremors or abnormal gait. Re-evaluation. Patient feels better. Discussed results and plan with patient who expresses understanding. All questions answered and there is agreement with the plan to discharge home with instructions. Patient stable for discharge. Return if symptoms persist or worsen. Re-evaluation Time: 15:14 Reassessment Condition: Re-examined, Improved Disposition/Present on Arrival - Present on Arrival Any Indicators Present on Arrival: No History of DVT/PE: No History of Uncontrolled Diabetes: No Urinary Catheter: No History of Decub. Ulcer: No History Surgical Site Infection Following: None - Disposition Have Diagnosis and Disposition been Completed?: Yes Diagnosis: Chronic foot pain Disposition: HOME/ ROUTINE Disposition Time: 15:15 Patient Plan: Discharge Patient Problems: Current Active Problems Problem Status Onset Chronic foot pain Acute Condition: STABLE Discharge Instructions (ExitCare): Chronic Pain (DC) Additional Instructions: Call Dr. Brooks for revaluation in 1-2 days. Take medication for pain as needed with food. Try to rest your foot as much as possible. return to emergency if pain worsen. Prescriptions: Ibuprofen [Motrin] 400 mg PO Q8H PRN #20 tab PRN Reason: Pain, Severe (8-10) Referrals: Estefania Brooks APN [Family Provider] - Follow up with primary
[2018-05-16 21:44] VITALS: BP 110/65; PULSE 78; RESP 18; O2SAT 100
== END 2018-05-16 15:20 | disposition home or self-care (01) ==
LOC: ED 14:19
DX: M79.672 Pain in left foot (principal); G89.29 Other chronic pain

== ENCOUNTER 2018-06-23 02:34 | Emergency (ER) | payer MEDICAID, OTHER ==
[2018-06-23 02:35] VITALS: BMI 28.0
--- NOTE | 2018-06-23 03:14 | ED PDOC ---
Arrival/HPI - General Chief Complaint: Alcohol Ingestion Time Seen by Provider: 06/23/18 02:46 Historian: Patient - History of Present Illness Narrative History of Present Illness (Text): 06/23/18 03:14 62 year old male, whose past medical history includes chronic back, and leg pain , hyperlipidemia, alcohol abuse, and substance abuse, presents to the emergency department by EMS for alcohol intoxication. Patient denies any current complaints at this time. Patient denies any fever, chills, chest pain, shortness of breath, nausea, vomiting, diarrhea, urinary symptoms, back pain, neck pain, headache, dizziness, or any other complaints. Symptom Onset: Gradual Symptom Course: Unchanged Activities at Onset: Light Past Medical History - Provider Review Nursing Documentation Reviewed: Yes - Infectious Disease Hx of Infectious Diseases: None - Past Medical History Past Medical History: No Previous - Cardiac Hx Hypertension: No - Pulmonary Hx Chronic Obstructive Pulmonary Disease (COPD): Yes - Neurological Hx Parkinson's Disease: Yes Hx Seizures: Yes - HEENT Hx HEENT Disorder: No - Renal Hx Renal Disorder: No - Endocrine/Metabolic Hx Endocrine Disorders: No - Hematological/Oncological Hx Cancer: No - Integumentary Hx Dermatological Disorder: No - Musculoskeletal/Rheumatological Hx Musculoskeletal Disorders: Yes Hx Back Pain: Yes - Gastrointestinal Hx Gastrointestinal Disorders: No - Genitourinary/Gynecological Hx Sexually Transmitted Diseases: No - Psychiatric Hx Anxiety: Yes Hx Bipolar Disorder: Yes Hx Depression: Yes Hx Schizophrenia: Yes Hx Substance Use: Yes - Past Surgical History Past Surgical History: Non-Contributing - Surgical History Hx Orthopedic Surgery: Yes (Right leg) - Anesthesia Hx Anesthesia: Yes Hx Anesthesia Reactions: No Hx Malignant Hyperthermia: No - Suicidal Assessment Feels Threatened In Home Enviroment: No Family/Social History - Physician Review Nursing Documentation Reviewed: Yes Family/Social History: No Known Family HX Smoking Status: Heavy Smoker > 10 Cigarettes Daily Hx Alcohol Use: Yes Hx Substance Use: Yes Substance used: percocet, heroin Allergies/Home Meds Allergies/Adverse Reactions: Allergies No Known Allergies Allergy (Verified 06/23/18 02:46) Home Medications: Home Meds Medication Instructions Recorded Confirmed Unobtainable 06/23/18 06/23/18 Review of Systems - Physician Review All systems were reviewed & negative as marked: Yes - Review of Systems Constitutional: absent: Fevers, Other (Chills) Respiratory: absent: SOB Cardiovascular: absent: Chest Pain Gastrointestinal: absent: Diarrhea, Nausea, Vomiting Genitourinary Male: absent: Dysuria, Frequency, Hematuria Musculoskeletal: absent: Back Pain, Neck Pain Neurological: absent: Headache, Dizziness Physical Exam Vital Signs Reviewed: Yes Vital Signs Temp Pulse Resp BP Pulse Ox 06/23/18 05:32 60 18 100/62 99 06/23/18 03:15 98.0 F 69 16 92/63 L 94 L Temperature: Afebrile Blood Pressure: Normal Pulse: Regular Respiratory Rate: Normal Appearance: Positive for: Well-Appearing, Non-Toxic, Comfortable Pain Distress: None Mental Status: Positive for: Alert and Oriented X 3 - Systems Exam Head: Present: Atraumatic, Normocephalic Pupils: Present: PERRL Extroacular Muscles: Present: EOMI Conjunctiva: Present: Normal Mouth: Present: Moist Mucous Membranes Neck: Present: Normal Range of Motion Respiratory/Chest: Present: Clear to Auscultation, Good Air Exchange. No: Respiratory Distress, Accessory Muscle Use Cardiovascular: Present: Regular Rate and Rhythm, Normal S1, S2. No: Murmurs Abdomen: No: Tenderness, Distention, Peritoneal Signs Back: Present: Normal Inspection Upper Extremity: Present: Normal Inspection. No: Cyanosis, Edema Lower Extremity: Present: Normal Inspection. No: Edema Neurological: Present: GCS=15, CN II-XII Intact, Speech Normal Skin: Present: Warm, Dry, Normal Color. No: Rashes Psychiatric: Present: Alert, Oriented x 3, Normal Insight, Normal Concentration Medical Decision Making ED Course and Treatment: 06/23/18 02:51 Impression: 62 year old male presents for alcohol intoxication. Plan: -- Fingerstick -- Reassess and disposition Prior Visits: Notes and results from previous visits were reviewed. Progress Notes: 06/23/18 05:18 Patient is awake, alert, and ambulating with a steady gait. Patient is eating a sandwich and is in no acute distress. Patient is stable for discharge. On re-evaluation, patient feels better and is in no acute distress. I have discussed the plan with the patient, who expresses understanding. Patient in agreement with plan to be discharged home. Patient is stable for discharge. Patient was instructed to follow up with physician or return if symptoms worsen or new concerning symptoms arise. 06/23/18 05:50 pt observed ambulatory steady gait eating sandwich stable for dc - Scribe Statement The provider has reviewed the documentation as recorded by the Wen Barreto Provider Scribe Attestation: All medical record entries made by the Scribe were at my direction and personally dictated by me. I have reviewed the chart and agree that the record accurately reflects my personal performance of the history, physical exam, medical decision making, and the department course for this patient. I have also personally directed, reviewed, and agree with the discharge instructions and disposition. Disposition/Present on Arrival - Present on Arrival Any Indicators Present on Arrival: No History of DVT/PE: No History of Uncontrolled Diabetes: No Urinary Catheter: No History of Decub. Ulcer: No History Surgical Site Infection Following: None - Disposition Have Diagnosis and Disposition been Completed?: Yes Diagnosis: Alcohol abuse Disposition: HOME/ ROUTINE Disposition Time: 05:00 Condition: STABLE Discharge Instructions (ExitCare): Alcohol Abuse and Alcoholism (DC) Additional Instructions: please follow up with your doctor. return to er with worsening symptoms or concerns. Referrals: Alcoholics Anonymous [Outside] - Follow up with primary [facility] [Outside] - Follow up with primary [facility] [place] [Outside] - Follow up with primary Forms: [employer] (Greenlandic)
[2018-06-23 03:15] VITALS: TEMP 98
[2018-06-23 05:36] VITALS: BP 100/62; PULSE 60; RESP 18; O2SAT 99
== END 2018-06-23 05:32 | disposition home or self-care (01) ==
LOC: ED 02:34
DX: F10.129 Alcohol abuse with intoxication, unspecified (principal); E78.5 Hyperlipidemia, unspecified; F20.9 Schizophrenia, unspecified; F17.210 Nicotine dependence, cigarettes, uncomplicated; G20 Parkinson's disease

== ENCOUNTER 2018-06-23 10:58 | Emergency (ER) | payer MEDICAID ==
[2018-06-23 10:59] VITALS: BMI 28.0
--- NOTE | 2018-06-23 12:03 | ED PDOC ---
Arrival/HPI - General Chief Complaint: Substance Abuse Time Seen by Provider: 06/23/18 11:59 Historian: Patient, EMS, Police - History of Present Illness Narrative History of Present Illness (Text): 06/23/18 12:00 62 y/o female, aox3, psychiatric history including schizoaffective, drug abuse, nkda, biba with the police due to found using heroine with a partner. Pt. stated that he was using heroine 2 small bags with the girlfriend in [place], [place] about 2 hours ago, got on the bus and walk home, found by the [place] Police because he was found using heroine with pinpoint pupils. Pt. stated that she feels well, no fall or trauma, no head/neck/back/extremity injury, no nausea or vomiting, no abdominal or pelvic pain, no numbness or tingling, no homocidal or suicidal ideation, no auditory or visual hallucination, other medical or psychological complaints. pt. stated that he just want to sleep it off, refused psychiatric and detox. Past Medical History - Provider Review Nursing Documentation Reviewed: Yes - Infectious Disease Hx of Infectious Diseases: None - Past Medical History Past Medical History: No Previous - Cardiac Hx Cardiac Disorders: No - Pulmonary Hx Respiratory Disorders: Yes Hx Chronic Obstructive Pulmonary Disease (COPD): Yes - Neurological Hx Neurological Disorder: Yes Hx Parkinson's Disease: Yes Hx Seizures: Yes - HEENT Hx HEENT Disorder: No - Renal Hx Renal Disorder: No - Endocrine/Metabolic Hx Endocrine Disorders: No - Hematological/Oncological Hx Blood Disorders: No - Integumentary Hx Dermatological Disorder: No - Musculoskeletal/Rheumatological Hx Musculoskeletal Disorders: Yes Hx Back Pain: Yes - Gastrointestinal Hx Gastrointestinal Disorders: No - Genitourinary/Gynecological Hx Genitourinary Disorders: No - Psychiatric Hx Psychophysiologic Disorder: Yes Hx Anxiety: Yes Hx Bipolar Disorder: Yes Hx Depression: Yes Hx Schizophrenia: Yes Hx Substance Use: Yes - Past Surgical History Past Surgical History: Non-Contributing - Surgical History Hx Orthopedic Surgery: Yes - Anesthesia Hx Anesthesia: Yes Hx Anesthesia Reactions: No Hx Malignant Hyperthermia: No - Suicidal Assessment Feels Threatened In Home Enviroment: No Family/Social History - Physician Review Nursing Documentation Reviewed: Yes Family/Social History: Unknown Family HX Smoking Status: Heavy Smoker > 10 Cigarettes Daily Hx Alcohol Use: Yes Hx Substance Use: Yes Substance used: percocet, heroin Allergies/Home Meds Allergies/Adverse Reactions: Allergies No Known Allergies Allergy (Verified 06/23/18 11:31) Home Medications: Home Meds Medication Instructions Recorded Confirmed Unobtainable 06/23/18 06/23/18 Review of Systems - Review of Systems Constitutional: absent: Fatigue, Fevers Eyes: absent: Vision Changes ENT: absent: Hearing Changes Respiratory: absent: SOB, Cough Cardiovascular: absent: Chest Pain Gastrointestinal: absent: Abdominal Pain, Nausea, Vomiting Musculoskeletal: absent: Arthralgias, Back Pain, Neck Pain, Myalgias Skin: absent: Rash, Pruritis Neurological: absent: Headache, Dizziness Endocrine: absent: Diaphoresis Psychiatric: absent: Anxiety, Depression, Suicidal Ideation Physical Exam Vital Signs Reviewed: Yes Vital Signs Temp Pulse Resp BP Pulse Ox 06/23/18 13:25 64 18 111/79 100 06/23/18 11:27 98.9 F 77 18 127/76 95 Temperature: Afebrile Blood Pressure: Normal Pulse: Regular Respiratory Rate: Normal Appearance: Positive for: Well-Appearing, Non-Toxic, Comfortable Pain Distress: None Mental Status: Positive for: Alert and Oriented X 3 Finger Stick Blood Glucose: 97 - Systems Exam Head: Present: Atraumatic, Normocephalic, Other (no facial bony tenderness or swelling. ). No: Tenderness, Contusion, Swelling, Ecchymosis, Abrasion, Laceration Pupils: Present: Pinpoint Extroacular Muscles: Present: EOMI Conjunctiva: Present: Normal Ears: Present: NORMAL TM, Normal Canal. No: Erythema Mouth: Present: Moist Mucous Membranes Pharnyx: No: ERYTHEMA, EXUDATE, TONSILS ENLARGED Nose (External): Present: Atraumatic. No: Abrasion, Contusion, Laceration Nose (Internal): Present: Normal Inspection, No Active Bleeding. No: Rhinorrhea , Septal Hematoma, Epistaxis Neck: Present: Normal Range of Motion, Trachea Midline. No: MIDLINE TENDERNESS , Paraspinal Tenderness, Lymphadenopathy Respiratory/Chest: Present: Clear to Auscultation, Good Air Exchange. No: Respiratory Distress, Accessory Muscle Use Cardiovascular: Present: Regular Rate and Rhythm, Normal S1, S2. No: Murmurs Abdomen: No: Tenderness, Distention, Peritoneal Signs, Rebound, Guarding Back: Present: Normal Inspection. No: CVA Tenderness, Midline Tenderness, Paraspinal Tenderness, Decubitus Ulcer Upper Extremity: Present: Normal Inspection, Normal ROM, Neurovascularly Intact , Capillary Refill < 2s. No: Cyanosis, Edema, Tenderness, Swelling, Deformity Lower Extremity: Present: Normal Inspection, NORMAL PULSES, Normal ROM, Neurovascularly Intact, Capillary Refill < 2 s. No: Edema, Tenderness, Swelling , Deformity Neurological: Present: GCS=15, CN II-XII Intact, Speech Normal, Motor Func Grossly Intact, Memory Normal Skin: Present: Warm, Dry, Normal Color. No: Rashes Psychiatric: Present: Alert, Oriented x 3, Normal Insight, Normal Concentration Medical Decision Making ED Course and Treatment: 06/23/18 12:03 -Pt. has pin point pupil which correlates with the patient's story, no signs of trauma, will check FS -Pt. is sleeping but easily arousable. -Observe and reassess 06/23/18 16:02 -FS 97 -Pt. is fully awake now, observed for over 5 hours, aox3, non drowsy, refused detox, room air saturation around 96-98, refused to stay for further observation , no signs of withdrawals, no tremors or fasiculation, walking with normal gait and posture, will discharge home. -Discharge home with education on follow up with your own pmd within 2 days, avoid public intoxication, return to the ER for any new or worsening signs or symptoms. - PA / REPAIR DEPARTMENT MANAGER / Resident Statement / has reviewed & agrees with the documentation as recorded. Disposition/Present on Arrival - Present on Arrival Any Indicators Present on Arrival: No History of DVT/PE: No History of Uncontrolled Diabetes: No Urinary Catheter: No History of Decub. Ulcer: No History Surgical Site Infection Following: None - Disposition Have Diagnosis and Disposition been Completed?: Yes Diagnosis: Heroin abuse Disposition: HOME/ ROUTINE Disposition Time: 12:04 Patient Plan: Discharge Patient Problems: Current Active Problems Problem Status Onset Heroin abuse Acute Condition: GOOD Additional Instructions: -Discharge home with education on follow up with your own pmd within 2 days, avoid public intoxication, return to the ER for any new or worsening signs or symptoms. [place]: [facility] [place] - Follow up with primary Forms: [employer] (Portuguese), WORK NOTE
[2018-06-23 16:06] VITALS: O2SAT 100
[2018-06-23 16:53] VITALS: BP 130/68; PULSE 74; RESP 18; TEMP 98.4
== END 2018-06-23 16:20 | disposition home or self-care (01) ==
LOC: ED 10:58
DX: F11.10 Opioid abuse, uncomplicated (principal); F20.9 Schizophrenia, unspecified; F17.210 Nicotine dependence, cigarettes, uncomplicated; G20 Parkinson's disease

== ENCOUNTER 2018-07-01 20:36 | Observation (INO) | payer MEDICAID ==
[2018-07-01 20:43] VITALS: BMI 25.8
[2018-07-01] MEDS ORDERED: Naloxone 0.4 mg/ml Inj (Adult) IV STA (20:43)
[2018-07-01] MEDS ORDERED: Naloxone 0.4 mg/ml Inj (Adult) IVP STA (20:56)
--- NOTE | 2018-07-01 20:56 | ED PDOC ---
Arrival/HPI - General Chief Complaint: Substance Abuse Time Seen by Provider: 07/01/18 20:42 Historian: Patient, EMS EM Caveat: Other (Substance Abuse) - History of Present Illness Narrative History of Present Illness (Text): 07/01/18 20:55 A 62 year old male, whose past psychiatric history includes schizoaffective disorder and drug abuse presents to the emergency department brought in by EMS for AMS. EMS reports that they was called by Anabelle GARCIA when patient sleeping in the street. Patient ambulated into ED but appears lethargic. Admits to heroin use. Limited HPI and ROS due to patient's limited communication. Time/Duration: 1-3 hours Symptom Onset: Gradual Activities at Onset: Light Context: Street Past Medical History - Provider Review Nursing Documentation Reviewed: Yes - Infectious Disease Hx of Infectious Diseases: None - Past Medical History Past Medical History: No Previous - Cardiac Hx Cardiac Disorders: No - Pulmonary Hx Respiratory Disorders: Yes Hx Chronic Obstructive Pulmonary Disease (COPD): Yes - Neurological Hx Neurological Disorder: Yes Hx Parkinson's Disease: Yes Hx Seizures: Yes - HEENT Hx HEENT Disorder: No - Renal Hx Renal Disorder: No - Endocrine/Metabolic Hx Endocrine Disorders: No - Hematological/Oncological Hx Blood Disorders: No - Integumentary Hx Dermatological Disorder: No - Musculoskeletal/Rheumatological Hx Musculoskeletal Disorders: Yes Hx Back Pain: Yes - Gastrointestinal Hx Gastrointestinal Disorders: No - Genitourinary/Gynecological Hx Genitourinary Disorders: No - Psychiatric Hx Psychophysiologic Disorder: Yes Hx Anxiety: Yes Hx Bipolar Disorder: Yes Hx Depression: Yes Hx Schizophrenia: Yes Hx Substance Use: Yes - Past Surgical History Past Surgical History: Non-Contributing - Surgical History Hx Orthopedic Surgery: Yes - Anesthesia Hx Anesthesia: Yes Hx Anesthesia Reactions: No Hx Malignant Hyperthermia: No - Suicidal Assessment Feels Threatened In Home Enviroment: No Family/Social History - Physician Review Nursing Documentation Reviewed: Yes Family/Social History: Unknown Family HX Smoking Status: Heavy Smoker > 10 Cigarettes Daily Hx Alcohol Use: Yes Hx Substance Use: Yes Substance used: percocet, heroin Allergies/Home Meds Allergies/Adverse Reactions: Allergies No Known Allergies Allergy (Verified 06/23/18 11:31) Home Medications: Home Meds Medication Instructions Recorded Confirmed Unobtainable 06/23/18 06/23/18 Review of Systems - Review of Systems Systems not reviewed;Unavailable: Other (Substance abuse) Physical Exam Vital Signs Reviewed: Yes Vital Signs Temp Pulse Resp BP Pulse Ox 07/01/18 21:57 70 20 143/72 98 07/01/18 20:43 98.5 F 74 14 93/65 L 90 L Temperature: Afebrile Blood Pressure: Hypotensive Pulse: Regular Respiratory Rate: Normal Appearance: Positive for: Non-Toxic, Comfortable, Unkept Pain Distress: None Mental Status: Positive for: Lethargic - Systems Exam Head: Present: Atraumatic, Normocephalic Pupils: Present: Pinpoint. No: PERRL, Sluggish, Non-Reactive Extroacular Muscles: Present: EOMI Conjunctiva: Present: Normal Mouth: Present: Moist Mucous Membranes Neck: Present: Normal Range of Motion Respiratory/Chest: Present: Clear to Auscultation. No: Good Air Exchange, Respiratory Distress, Accessory Muscle Use, Wheezes, Rales, Retracting, Rhonchi , Tachypneic, Tender to Palpation Cardiovascular: Present: Regular Rate and Rhythm, Normal S1, S2. No: Murmurs Abdomen: No: Tenderness, Distention, Peritoneal Signs Back: Present: Normal Inspection Upper Extremity: Present: Other (ambulated into ED, moving extremities spontaneously x 4). No: Cyanosis, Edema Lower Extremity: No: Edema Neurological: Present: CN II-XII Intact, Other ( arousable to sternal rub) Skin: Present: Warm, Dry, Normal Color. No: Rashes Psychiatric: Present: Lethargic. No: Alert, Oriented x 3, Anxious Medical Decision Making ED Course and Treatment: 07/01/18 21:00 Impression: A 62 year old male presents to the emergency department brought in by EMS for AMS. Patient has pinpoint pupils with decreased respiratory rate. Hx of opiod abuse in past. Plan: -- Narcan -- Reassess and disposition Prior Visits: Notes and results from previous visits were reviewed. Patient was last seen in the emergency department on 06/23/18 for substance abuse and was discharged when condition stabled. Progress Notes: 21:02 Patient was administered narcan 0.4mg and is now more alert and O2 sat increased to 97%. However, additional narcan 1mg had to be given because patient became more somnolent. 07/01/18 21:38 EKG shows NSR at 72bpm with normal intervals and no acute ST changes 07/01/18 22:00 CT head negative and CT c-spine negative. Will sign out to Dr. Hopkins to monitor for sobriety 07/01/18 22:02 - Lab Interpretations Lab Results: 07/01/18 21:41 Lab Results 07/01/18 21:41: WBC 6.4, RBC 4.18, Hgb 13.0 L, Hct 38.2 L, MCV 91.4, MCH 31.1, MCHC 34.0, RDW 14.0, Plt Count 236, MPV 10.5, Gran % 57.8, Lymph % (Auto) 29.5, [place] % (Auto) 8.6 H, Eos % (Auto) 3.5, Baso % (Auto) 0.6, Gran # 3.68, Lymph # ( Auto) 1.9, [place] # (Auto) 0.6, Eos # (Auto) 0.2, Baso # (Auto) 0.04 - RAD Interpretation Radiology Orders: 07/01/18 21:10 CERVICAL SPINE W/O CONTRAST [CT] Stat HEAD W/O CONTRAST [CT] Stat 07/01/18 21:33 CHEST PORTABLE [RAD] Stat - Medication Orders Current Medication Orders: Sodium Chloride (Sodium Chloride 0.9%) 1,000 mls @ 999 mls/hr IV .Q1H1M STA Stop: 07/01/18 22:32 Last Admin: 07/01/18 21:43 Dose: 999 mls/hr eMAR Start Stop Document 07/01/18 21:43 IT (Rec: 07/01/18 21:43 [id number] Intravenous Solution Start Date 07/01/18 Start Time 21:43 Discontinued Medications Naloxone HCl (Narcan) 0.4 mg IV STAT STA Stop: 07/01/18 20:44 Last Admin: 07/01/18 20:49 Dose: 0.4 mg eMAR Start Stop Document 07/01/18 20:49 IT (Rec: 07/01/18 20:49 IT [facility] [id number]) Intravenous Solution Start Date 07/01/18 Start Time 20:49 Naloxone HCl (Narcan) 1 mg IVP STAT STA Stop: 07/01/18 20:57 Last Admin: 07/01/18 21:10 Dose: 1 mg IVP Administration Document 07/01/18 21:10 LAC (Rec: 07/01/18 21:10 LAC [id number]) Charges for Administration # of IVP Administrations 1 - Scribe Statement The provider has reviewed the documentation as recorded by the Scribchristiano Ray All medical record entries made by the Scribe were at my direction and personally dictated by me. I have reviewed the chart and agree that the record accurately reflects my personal performance of the history, physical exam, medical decision making, and the department course for this patient. I have also personally directed, reviewed, and agree with the discharge instructions and disposition. Disposition/Present on Arrival - Present on Arrival Any Indicators Present on Arrival: No History of DVT/PE: No History of Uncontrolled Diabetes: No Urinary Catheter: No History of Decub. Ulcer: No History Surgical Site Infection Following: None - Disposition Have Diagnosis and Disposition been Completed?: Yes Diagnosis: Opiate abuse, continuous Disposition Time: 23:00 Condition: FAIR Forms: [employer] (Kinyarwanda)
[2018-07-01] MEDS ORDERED: Sodium Chloride 0.9% 1,000 ML IV STA (21:32)
[2018-07-01 22:10] LABS: BASO # 0.04 K/mm3 (0.0-2.0); BASO % 0.6 % (0.0-3.0); EOS # 0.2 (0.0-0.7); EOS % 3.5 % (1.5-5.0); GRAN # 3.68 (1.4-6.5); GRAN % 57.8 % (50.0-68.0); LYMPH # 1.9 (1.2-3.4); LYMPH % 29.5 % (22.0-35.0); MEAN CELL VOLUME 91.4 fl (80.0-105.0); MEAN CORPUSCULAR HEMOGLOBIN 31.1 pg (25.0-35.0); MEAN PLATELET VOLUME 10.5 fl (7.0-11.0); MONO # 0.6 (0.1-0.6); MONO % 8.6 % (1.0-6.0); RBC 4.18 10^6/uL (3.5-6.1); WHITE BLOOD COUNT 6.4 10^3/ul (4.5-11.0)
[2018-07-01 22:21] LABS: BLOOD UREA NITROGEN 21 mg/dL (7-21); CALCIUM 8.9 mg/dL (8.4-10.5); GFR AFRICAN-AMERICAN > 60; GFR NON-AFRICAN AMERICAN > 60
--- NOTE | 2018-07-01 23:45 | ED PDOC ---
Physical Exam Vital Signs Reviewed: Yes Vital Signs Temp Pulse Resp BP Pulse Ox 07/02/18 02:34 56 L 19 100/61 97 07/01/18 21:57 70 20 143/72 98 07/01/18 20:43 98.5 F 74 14 93/65 L 90 L Temperature: Afebrile Blood Pressure: Hypotensive Pulse: Regular Respiratory Rate: Normal Appearance: Positive for: Well-Appearing, Non-Toxic, Comfortable Pain Distress: None Mental Status: Positive for: Alert and Oriented X 3 - Systems Exam Head: Present: Atraumatic, Normocephalic Pupils: Present: PERRL Extroacular Muscles: Present: EOMI Conjunctiva: Present: Normal Mouth: Present: Moist Mucous Membranes Neck: Present: Normal Range of Motion Respiratory/Chest: Present: Clear to Auscultation, Good Air Exchange. No: Respiratory Distress, Accessory Muscle Use Cardiovascular: Present: Regular Rate and Rhythm, Normal S1, S2. No: Murmurs Abdomen: No: Tenderness, Distention, Peritoneal Signs Back: Present: Normal Inspection Upper Extremity: Present: Normal Inspection. No: Cyanosis, Edema Lower Extremity: Present: Normal Inspection. No: Edema Neurological: Present: GCS=15, CN II-XII Intact, Speech Normal Skin: Present: Warm, Dry, Normal Color. No: Rashes Psychiatric: Present: Alert, Oriented x 3 Medical Decision Making ED Course and Treatment: 07/01/18 23:42 Case endorsed to me by Dr. Ramirez, pending full sobriety s/p heroine overdose. Pt has a pmhx of recreational heroine abuse. 07/02/18 04:55 Pt. is arousable yet still remains drowsy.Further collateral information obtained reveals patient also with hx. of benzodiazepam abuse.Patients vital signs have remained stable.Case discussed with the medical health researcher and .Accepted the patient to the hospitalist service for ongoing observation further evaluation as needed. - Lab Interpretations Lab Results: 07/01/18 21:41 07/01/18 21:41 Lab Results 07/01/18 21:41: Alcohol, Quantitative < 10 07/01/18 21:41: Sodium 145, Potassium 4.0, Chloride 102, Carbon Dioxide 31, Anion Gap 15, BUN 21, Creatinine 1.1, Est GFR ( Amer) > 60, Est GFR (Non- Af Amer) > 60, Random Glucose 114 H, Calcium 8.9 07/01/18 21:41: WBC 6.4, RBC 4.18, Hgb 13.0 L, Hct 38.2 L, MCV 91.4, MCH 31.1, MCHC 34.0, RDW 14.0, Plt Count 236, MPV 10.5, Gran % 57.8, Lymph % (Auto) 29.5, Woodruff % (Auto) 8.6 H, Eos % (Auto) 3.5, Baso % (Auto) 0.6, Gran # 3.68, Lymph # ( Auto) 1.9, Woodruff # (Auto) 0.6, Eos # (Auto) 0.2, Baso # (Auto) 0.04 - RAD Interpretation Radiology Orders: 07/01/18 21:10 CERVICAL SPINE W/O CONTRAST [CT] Stat HEAD W/O CONTRAST [CT] Stat 07/01/18 21:33 CHEST PORTABLE [RAD] Stat - Medication Orders Current Medication Orders: Discontinued Medications Sodium Chloride (Sodium Chloride 0.9%) 1,000 mls @ 999 mls/hr IV .Q1H1M STA Stop: 07/01/18 22:32 Last Admin: 07/01/18 21:43 Dose: 999 mls/hr eMAR Start Stop Document 07/01/18 21:43 IT (Rec: 07/01/18 21:43 IT [facility] [id number] Intravenous Solution Start Date 07/01/18 Start Time 21:43 Naloxone HCl (Narcan) 0.4 mg IV STAT STA Stop: 07/01/18 20:44 Last Admin: 07/01/18 20:49 Dose: 0.4 mg eMAR Start Stop Document 07/01/18 20:49 IT (Rec: 07/01/18 20:49 IT [facility] [id number]) Intravenous Solution Start Date 07/01/18 Start Time 20:49 Naloxone HCl (Narcan) 1 mg IVP STAT STA Stop: 07/01/18 20:57 Last Admin: 07/01/18 21:10 Dose: 1 mg IVP Administration Document 07/01/18 21:10 LAC (Rec: 07/01/18 21:10 LAC [id number]) Charges for Administration # of IVP Administrations 1 - Scribe Statement The provider has reviewed the documentation as recorded by the Wen Desouza All medical record entries made by the Wen were at my direction and personally dictated by me. I have reviewed the chart and agree that the record accurately reflects my personal performance of the history, physical exam, medical decision making, and the department course for this patient. I have also personally directed, reviewed, and agree with the discharge instructions and disposition. Disposition/Present on Arrival - Present on Arrival Any Indicators Present on Arrival: No History of DVT/PE: No History of Uncontrolled Diabetes: No Urinary Catheter: No History of Decub. Ulcer: No History Surgical Site Infection Following: None - Disposition Have Diagnosis and Disposition been Completed?: Yes Diagnosis: Opiate abuse, continuous, Benzodiazepine abuse Disposition: HOSPITALIZED Disposition Time: 04:55 Patient Plan: Observation Patient Problems: Current Active Problems Problem Status Onset Benzodiazepine abuse Acute Opiate abuse, continuous Chronic Condition: FAIR Forms: [facility] (Welsh)
--- NOTE | 2018-07-02 06:03 | CP.PCM.HP ---
History of Present Illness - History of Present Illness History of Present Illness: Shirlene Covarrubias, PGY-1, Internal Medicine History and Physical for Dr. Sandy CC: altered mental status 62 year old male with past medical history of chronic back and leg pain, hyperlipidemia, alcohol abuse, anxiety, schizoaffective disorder, and substance abuse presents to the emergency department by EMS due to altered mental status. Patient was found sleeping in the street. Patient admitted to heroin use as per ED. On presentation, patient is altered and AAOx1. Patient was lethargic but easily arousable. Patient kept wanting to fall asleep during examination. 12- point ROS was unattainable due to altered mental status of patient. Full past medical history, past surgical history, family history, social history , and allergies was unable to be obtained due to altered mental status. PMD: unknown Pharmacy: unknown Insurance: [employer] Present on Admission - Present on Admission Any Indicators Present on Admission: No History of DVT/PE: No History of Uncontrolled Diabetes: No Review of Systems - Review of Systems Systems not reviewed;Unavailable: Acuity of Condition, Altered Mental Status Past Patient History - Infectious Disease Hx of Infectious Diseases: None - Past Medical History & Family History Past Medical History?: Yes - Past Social History Smoking Status: Heavy Smoker > 10 Cigarettes Daily - CARDIAC Hx Cardiac Disorders: No - PULMONARY Hx Respiratory Disorders: Yes Hx Chronic Obstructive Pulmonary Disease (COPD): Yes - NEUROLOGICAL Hx Neurological Disorder: Yes Hx Parkinson's Disease: Yes Hx Seizures: Yes - HEENT Hx HEENT Problems: No - RENAL Hx Chronic Kidney Disease: No - ENDOCRINE/METABOLIC Hx Endocrine Disorders: No - HEMATOLOGICAL/ONCOLOGICAL Hx Blood Disorders: No - INTEGUMENTARY Hx Dermatological Problems: No - MUSCULOSKELETAL/RHEUMATOLOGICAL Hx Musculoskeletal Disorders: Yes Hx Back Pain: Yes - GASTROINTESTINAL Hx Gastrointestinal Disorders: No - GENITOURINARY/GYNECOLOGICAL Hx Genitourinary Disorders: No - PSYCHIATRIC Hx Psychophysiologic Disorder: Yes Hx Anxiety: Yes Hx Bipolar Disorder: Yes Hx Depression: Yes Hx Schizophrenia: Yes Hx Substance Use: Yes - SURGICAL HISTORY Hx Orthopedic Surgery: Yes - ANESTHESIA Hx Anesthesia: Yes Hx Anesthesia Reactions: No Hx Malignant Hyperthermia: No Meds Allergies/Adverse Reactions: Allergies Allergy/AdvReac Type Severity Reaction Status Date / Time No Known Allergies Allergy Verified 06/23/18 11:31 Physical Exam - Constitutional Appears: Well, Non-toxic - Head Exam Head Exam: ATRAUMATIC, NORMOCEPHALIC - Eye Exam Eye Exam: PERRL Additional comments: extraocular muscles could not be assessed - Respiratory Exam Respiratory Exam: Clear to Auscultation Bilateral, NORMAL BREATHING PATTERN - Cardiovascular Exam Cardiovascular Exam: REGULAR RHYTHM, RRR - GI/Abdominal Exam GI & Abdominal Exam: Normal Bowel Sounds, Soft, Tenderness - Extremities Exam Additional comments: unable to evaluate - Back Exam Back exam: NORMAL INSPECTION - Neurological Exam Neurological exam: Alert (AAOX1), CN II-XII Intact (grossly) - Skin Skin Exam: Dry, Intact, Normal Color Results - Vital Signs Recent Vital Signs: Last Vital Signs Temp 98.5 F 07/01/18 20:43 Pulse 56 L 07/02/18 05:20 Resp 17 07/02/18 05:20 BP 117/72 07/02/18 05:20 Pulse Ox 96 07/02/18 05:20 - Labs Result Diagrams: 07/01/18 21:41 07/01/18 21:41 Assessment & Plan - Assessment and Plan (Free Text) Assessment: 62 year old male with past medical history of chronic back and leg pain, hyperlipidemia, alcohol abuse, anxiety, schizoaffective disorder, and substance abuse presents to the emergency department by EMS due to altered mental status. Patient will be admitted for altered mental status due to substance abuse. Plan: Altered mental status 2/2 to substance abuse vs. head trauma -UDS ordered. Patient admitted to heroin use. -Continue to monitor mental status. -Swallow eval to evaluate if patient can eat. -NPO -Narcan given twice in the emergency department. -Head and cervical spine CT are unremarkable. Normocytic Anemia -Hgb: 13.0. -Continue to monitor. History of schizoaffective disorder -Dr. Beavers, psychiatry, consulted. -Follow recommendations. Patient seen and assessed with Dr. Sandy. - Date & Time Date: 07/02/18 Time: 06:09
[2018-07-02] MEDS ORDERED: Albuterol-Ipratrop 3 mg / 0.5 (3 ml) UD IH PRN (07:08)
[2018-07-02 07:25] LABS: BARBITURATES, UR NEGATIVE (NEGATIVE); BENZODIAZEPINES, UR POSITIVE (NEGATIVE); OPIATES, UR POSITIVE (NEGATIVE); PHENCYCLIDINE, UR NEGATIVE (NEGATIVE)
[2018-07-02 08:25] LABS: ALB/GLOB RATIO 1.2 (1.1-1.8); ALBUMIN 3.2 g/dL (3.0-4.8); ALT/SGPT 23 U/L (7-56); AST/SGOT 14 U/L (17-59); BLOOD UREA NITROGEN 18 mg/dL (7-21); CALCIUM 8.9 mg/dL (8.4-10.5); GFR AFRICAN-AMERICAN > 60; GFR NON-AFRICAN AMERICAN > 60
--- NOTE | 2018-07-02 08:35 | CT ---
Date of service: 07/01/2018 PROCEDURE: CT HEAD WITHOUT CONTRAST. HISTORY: altered, intoxication COMPARISON: 02/20/2018 TECHNIQUE: Axial computed tomography images were obtained through the head/brain without intravenous contrast. Radiation dose: Total exam DLP = 868.71 mGy-cm. This CT exam was performed using one or more of the following dose reduction techniques: Automated exposure control, adjustment of the mA and/or kV according to patient size, and/or use of iterative reconstruction technique. FINDINGS: HEMORRHAGE: No intracranial hemorrhage. BRAIN: No mass effect or edema. Stable old inferior left frontal encephalomalacia change possibly reflecting old infarct. Minimal chronic periventricular white matter ischemic change. No evidence of acute infarct. VENTRICLES: Unremarkable. No hydrocephalus. CALVARIUM: Unremarkable. PARANASAL SINUSES: Mild chronic ethmoid sinusitis. MASTOID AIR CELLS: Unremarkable as visualized. No inflammatory changes. OTHER FINDINGS: Deformity of nasal bone, likely chronic. IMPRESSION: No intracranial mass, hemorrhage or evidence of acute infarct. Mild chronic ethmoid sinusitis. Minimal chronic periventricular white matter ischemic change. Stable old left inferior frontal encephalomalacia change. No change from 02/20/2018. The preliminary findings for this examination were reported by [facility] at 9:59 p.m. on 07/01/2018. There is concurrence of this report with the preliminary findings.
--- NOTE | 2018-07-02 08:40 | CT ---
Date of service: 07/01/2018 PROCEDURE: CT Cervical Spine without contrast HISTORY: altered, intoxication COMPARISON: None TECHNIQUE: Axial computed tomography images were obtained of the cervical spine without the use of intravenous contrast. Coronal and sagittal reformatted images were created and reviewed. Radiation dose: Total exam DLP = 390.87 mGy-cm. This CT exam was performed using one or more of the following dose reduction techniques: Automated exposure control, adjustment of the mA and/or kV according to patient size, and/or use of iterative reconstruction technique. FINDINGS: VERTEBRAE: Vertebral bodies maintained in height. Normal vertebral alignment maintained. The atlantoaxial articulation and odontoid process are intact. DISCS/SPINAL CANAL/NEURAL FORAMINA: There is narrowing of the C5-6 and C6-7 intervertebral disc spaces associated with osteophyte formation about these affected disc spaces. There is severe bilateral uncovertebral degenerative arthritis. There is bilateral neural foraminal stenosis as well as mild central spinal stenosis at both of these levels. Discs heights are grossly preserved. PARASPINAL SOFT TISSUES: Unremarkable. OTHER FINDINGS: Mild emphysematous change at the lung apices. IMPRESSION: No fracture/ dislocation. Degenerative disc disease at C5-6 and C6-7 with bilateral neural foraminal stenosis and mild central spinal stenosis. The preliminary findings for this examination were reported by [facility] at 10:02 p.m. on 07/01/2018. There is concurrence of this report with the preliminary findings.
--- NOTE | 2018-07-02 09:23 | RAD ---
Date of service: 07/01/2018 HISTORY: altered COMPARISON: 06/11/2017 FINDINGS: LUNGS: No active pulmonary disease. PLEURA: No significant pleural effusion identified, no pneumothorax apparent. CARDIOVASCULAR: Normal. OSSEOUS STRUCTURES: No significant abnormalities. VISUALIZED UPPER ABDOMEN: Normal. OTHER FINDINGS: None. IMPRESSION: No active disease.
[2018-07-02 10:54] LABS: ARTERIAL BLOOD GAS HCO3 25.9 mmol/L (21-28); ARTERIAL BLOOD GAS O2 SAT 98.8 % (95-98); ARTERIAL BLOOD GAS PCO2 39 mm/Hg (35-45); ARTERIAL BLOOD GAS PH 7.43 (7.35-7.45); ARTERIAL BLOOD GAS TCO2 27.1 mmol.L (22-28)
[2018-07-02 12:39] LABS: PH,URINE 6.5 (4.7-8.0); URINE BILIRUBIN NEGATIVE (NEGATIVE); URINE BLOOD TRACE-INTACT (NEGATIVE); URINE GLUCOSE (UA) NEGATIVE (NEGATIVE); URINE LEUKOCYTE ESTERASE NEGATIVE Leu/uL (NEGATIVE); URINE PROTEIN NEGATIVE mg/dL (<30 mg/dL); URINE UROBILINOGEN 0.2 E.U./dL (<1 E.U./dL)
[2018-07-02 12:40] LABS: URINE APPEARANCE CLEAR (CLEAR); URINE COLOR YELLOW (YELLOW)
[2018-07-02 12:49] LABS: URINE BACTERIA MOD (NEG); URINE WBC 0 - 2 /hpf (0-6)
--- NOTE | 2018-07-03 00:13 | CON ---
Copied To: Gregory Beavers MD Attending MD: Gregory Beavers MD DATE: 07/02/2018 HISTORY OF PRESENT ILLNESS: The patient is a 62-year-old male with a prior psychiatric history including reported schizoaffective disorder in 2017, opioid drug dependency history. He was brought in by EMS with altered mental status secondary to unintentional overdose of heroin. The patient has a prior psychiatric hospitalization history at [facility] in 05/2018. At that time, he was discharged on Paxil 10 mg and Seroquel 100 mg at bedtime; the patient has not continued with these medications. Psychiatry was consulted. This patient has a history of schizoaffective disorder. I met with patient at bedside. He appears to be confused and is not aware of current month or location, although he does know what year it is. The patient recalls the circumstances of this admission and he initially indicated this is an accident and he says there is some purpose . Regardless, he indicates that he is depressed, he has not been continuing his medications. He feels overwhelmed. He has wishes and would like medically cleared. He does not have any perceptual disturbance at this time. He does not appear to be responding to internal stimuli. I questioned whether he has schizoaffective disorder versus substance abuse psychotic disorder from heroin. Thus far, he is in fair control. His insight and judgment are considered to be poor to fair. Vital signs and labs were reviewed by this provider. The patient does not have any current psychiatric medications. PSYCHIATRIC HISTORY: Please note that the patient was hospitalized on 06/11/2018 to 06/17/2018 at [facility] and prescribed Paxil 10 mg daily and Seroquel 100 mg at bedtime, which he did not continue. It does not appear that the patient has any prior suicide attempt history. SOCIAL HISTORY: The patient was born in [place]. He has been with his current partner for the past 14 years. He has no children. He is not employed, and indicated that he has been addicted to opiates for the last 17 years. IMPRESSION: Opiate use disorder, severe, likely unintentional versus intentional overdose; mood disorder not otherwise specified, major depressive disorder. RECOMMENDATIONS: We will start Paxil 10 mg at bedtime and Seroquel 50 mg at bedtime. The patient to be voluntarily transferred to the psychiatric unit once he is medically cleared. Gregory Beavers MD
[2018-07-03 06:44] VITALS: O2SAT 99
[2018-07-03 07:08] LABS: BASO # 0.04 K/mm3 (0.0-2.0); BASO % 0.6 % (0.0-3.0); EOS # 0.2 (0.0-0.7); EOS % 3.6 % (1.5-5.0); GRAN # 3.94 (1.4-6.5); GRAN % 59.6 % (50.0-68.0); HEMOGLOBIN 13.6 g/dL (14.0-18.0); LYMPH # 1.8 (1.2-3.4); LYMPH % 27.6 % (22.0-35.0); MEAN CORPUSCULAR HEMOGLOBIN 31.1 pg (25.0-35.0); MEAN CORPUSCULAR HGB CONC 34.5 g/dl (31.0-37.0); MONO # 0.6 (0.1-0.6); MONO % 8.6 % (1.0-6.0); RBC 4.38 10^6/uL (3.5-6.1); RED CELL DISTRIBUTION WIDTH 13.7 % (11.5-14.5); WHITE BLOOD COUNT 6.6 10^3/ul (4.5-11.0)
[2018-07-03 07:43] LABS: ALB/GLOB RATIO 1.2 (1.1-1.8); ALBUMIN 3.3 g/dL (3.0-4.8); ALT/SGPT 18 U/L (7-56); AST/SGOT 14 U/L (17-59); BLOOD UREA NITROGEN 16 mg/dL (7-21); GFR AFRICAN-AMERICAN > 60; GFR NON-AFRICAN AMERICAN > 60
[2018-07-03] MEDS ORDERED: Potassium Chloride 20 mEq ER Tab PO STA (08:48)
--- NOTE | 2018-07-03 09:59 | CARD ---
APPROVED REPORT Date of service: 07/01/2018 EKG Measurement Heart [id number] <Conclusion> Poor data quality, interpretation may be adversely affected Normal sinus rhythm Septal infarct, age undetermined Abnormal ECG
[2018-07-03 11:59] VITALS: BP 152/88; PULSE 69; RESP 21; TEMP 98.7
--- NOTE | 2018-07-03 16:24 | CP.PCM.DIS ---
<Alexandru Bose - Last Filed: 07/03/18 16:21> Provider - Provider Date of Admission: 07/02/18 05:00 Attending physician: Angelina Lambert MD Primary care physician: Unknown Consults: Psychology - Dr. Beavers Time Spent in preparation of Discharge (in minutes): 40 Diagnosis - Discharge Diagnosis (1) MDD (major depressive disorder) Status: Acute Priority: High (2) Benzodiazepine abuse Status: Acute Priority: High (3) Opioid abuse Status: Acute Priority: High (4) Schizoaffective disorder Status: Acute Priority: High Hospital Course - Lab Results Lab Results: Most Recent Lab Values WBC 6.6 10^3/ul (4.5-11.0) 07/03/18 06:30 RBC 4.38 10^6/uL (3.5-6.1) 07/03/18 06:30 Hgb 13.6 g/dL (14.0-18.0) L 07/03/18 06:30 Hct 39.4 % (42.0-52.0) L 07/03/18 06:30 MCV 90.0 fl (80.0-105.0) 07/03/18 06:30 MCH 31.1 pg (25.0-35.0) 07/03/18 06:30 MCHC 34.5 g/dl (31.0-37.0) 07/03/18 06:30 RDW 13.7 % (11.5-14.5) 07/03/18 06:30 Plt Count 219 10^3/uL (120.0-450.0) 07/03/18 06:30 MPV 10.0 fl (7.0-11.0) 07/03/18 06:30 Gran % 59.6 % (50.0-68.0) 07/03/18 06:30 Lymph % (Auto) 27.6 % (22.0-35.0) 07/03/18 06:30 [place] % (Auto) 8.6 % (1.0-6.0) H 07/03/18 06:30 Eos % (Auto) 3.6 % (1.5-5.0) 07/03/18 06:30 Baso % (Auto) 0.6 % (0.0-3.0) 07/03/18 06:30 Gran # 3.94 (1.4-6.5) 07/03/18 06:30 Lymph # (Auto) 1.8 (1.2-3.4) 07/03/18 06:30 [place] # (Auto) 0.6 (0.1-0.6) 07/03/18 06:30 Eos # (Auto) 0.2 (0.0-0.7) 07/03/18 06:30 Baso # (Auto) 0.04 K/mm3 (0.0-2.0) 07/03/18 06:30 pCO2 39 mm/Hg (35-45) 07/02/18 10:40 pO2 87.0 mm/Hg (80-100) 07/02/18 10:40 HCO3 25.9 mmol/L (21-28) 07/02/18 10:40 ABG pH 7.43 (7.35-7.45) 07/02/18 10:40 ABG Total CO2 27.1 mmol.L (22-28) 07/02/18 10:40 ABG O2 Saturation 98.8 % (95-98) H 07/02/18 10:40 ABG Base Excess 1.5 mmol/L (-2.0-3.0) 07/02/18 10:40 ABG Potassium 3.2 mmol/L (3.6-5.2) L 07/02/18 10:40 Sodium 144.0 mmol/L (132-148) 07/02/18 10:40 Chloride 112.0 mmol/L (98-107) H 07/02/18 10:40 Glucose 87 mg/dl (75-110) 07/02/18 10:40 Lactate 0.5 mmol/L (0.7-2.1) L 07/02/18 10:40 FiO2 21.0 % 07/02/18 10:40 Sodium 144 mmol/L (132-148) 07/03/18 06:30 Potassium 3.4 mmol/L (3.6-5.0) L 07/03/18 06:30 Chloride 108 mmol/L (98-107) H 07/03/18 06:30 Carbon Dioxide 27 mmol/L (21-33) 07/03/18 06:30 Anion Gap 13 (10-20) 07/03/18 06:30 BUN 16 mg/dL (7-21) 07/03/18 06:30 Creatinine 0.8 mg/dl (0.8-1.5) 07/03/18 06:30 Est GFR ( Amer) > 60 07/03/18 06:30 Est GFR (Non-Af Amer) > 60 07/03/18 06:30 Random Glucose 118 mg/dL (70-110) H 07/03/18 06:30 Calcium 9.0 mg/dL (8.4-10.5) 07/03/18 06:30 Total Bilirubin 0.2 mg/dL (0.2-1.3) 07/03/18 06:30 AST 14 U/L (17-59) L 07/03/18 06:30 ALT 18 U/L (7-56) 07/03/18 06:30 Alkaline Phosphatase 66 U/L (38-126) 07/03/18 06:30 Total Creatine Kinase 51 U/L (35-230) 07/02/18 08:00 Total Protein 6.2 g/dL (5.8-8.3) 07/03/18 06:30 Albumin 3.3 g/dL (3.0-4.8) 07/03/18 06:30 Globulin 2.8 gm/dL 07/03/18 06:30 Albumin/Globulin Ratio 1.2 (1.1-1.8) 07/03/18 06:30 Arterial Blood Potassium 3.2 mmol/L (3.6-5.2) L 07/02/18 10:40 Urine Color Yellow (YELLOW) 07/02/18 12:26 Urine Appearance Clear (CLEAR) 07/02/18 12:26 Urine pH 6.5 (4.7-8.0) 07/02/18 12:26 Ur Specific [place] 1.020 (1.005-1.035) 07/02/18 12:26 Urine Protein Negative mg/dL (<30 mg/dL) 07/02/18 12:26 Urine Glucose (UA) Negative mg/dL (NEGATIVE) 07/02/18 12:26 Urine Ketones Negative mg/dL (NEGATIVE) 07/02/18 12:26 Urine Blood Trace-intact (NEGATIVE) H 07/02/18 12:26 Urine Nitrate Negative (NEGATIVE) 07/02/18 12:26 Urine Bilirubin Negative (NEGATIVE) 07/02/18 12:26 Urine Urobilinogen 0.2 E.U./dL (<1 E.U./dL) 07/02/18 12:26 Ur Leukocyte Esterase Negative Petra/uL (NEGATIVE) 07/02/18 12:26 Urine RBC 1 - 3 /hpf (0-2) 07/02/18 12:26 Urine WBC 0 - 2 /hpf (0-6) 07/02/18 12:26 Ur Epithelial Cells None /hpf (0-5) 07/02/18 12:26 Urine Bacteria Mod (NEG) 07/02/18 12:26 Urine Opiates Screen Positive (NEGATIVE) H 07/02/18 06:20 Urine Methadone Screen Negative (NEGATIVE) 07/02/18 06:20 Ur Barbiturates Screen Negative (NEGATIVE) 07/02/18 06:20 Ur Phencyclidine Scrn Negative (NEGATIVE) 07/02/18 06:20 Ur Amphetamines Screen Negative (NEGATIVE) 07/02/18 06:20 U Benzodiazepines Scrn Positive (NEGATIVE) H 07/02/18 06:20 U Oth Cocaine Metabols Negative (NEGATIVE) 07/02/18 06:20 U Cannabinoids Screen Negative (NEGATIVE) 07/02/18 06:20 Alcohol, Quantitative < 10 mg/dL (0-10) 07/01/18 21:41 - Hospital Course Hospital Course: Alexandru Bose DO PGY1 Internal Medicine Accountant Auditor - Hospital Discharge Summary 62M with a PMH of chornic back pain, leg pain, HLD, EtOH abuse, Anxiety, Substance abuse, presented to [facility] ED on 07/01 brought in by EMS for AMS. As per EMS report patient was found sleeping in street after he self reported using heroin. He was given x2 narcan in ED, and presentation improved; O2 sat increased. EKG showed NSR @72/min w/ no acute ST changes; CT Head/ Neck/ Cspine were negative. Patient remained drowsy throughout throughout ED Course, and was subsequently admitted to medical service for management of altered mental status. On initial presentation, patient appeared to be extremely lethargic however he was easily arousable. Patient passed speech and swallow evaluation, UDS positive for benzo and opiate. Behavioral health evaluated the patient, and recommended patient to be a voluntary transfer to psychiatric unit once he is medically cleared. Patient refused this option and wanted to be DC home. He was extensively counseled on the risks of opiate abuse; and educated regarding addiction. Patient was encouraged to seek help for addiction management. Morning of discharge, Patient reported no issues overnight; Denied any signs of withdrawal such as headache, dizziness, abdominal pian, N/V/ DC; He also denied chest pain, sob, cough. he did however complain of L leg pain, previous xray of R first toe showed some osteoarthritis. Patient was advised to follow up toe pain w/ PMD as outpatient. He was discharged w/ the following instructions: Please follow up with your primary care doctor, Estefania Brooks APN, within one to two weeks for post hospitalization follow up. Please take all medications as prescribed. This includes all prescriptions and OTC drugs. Please stop using illicit drugs as discussed. If your symptoms should persist or worsen, including suicidal or homicidal ideation, please seek emergency medical attention immediately. Patient is medically stable for discharge at this time. - Date & Time of H&P Date of H&P: 07/02/18 Time of H&P: 05:43 Discharge Exam - Head Exam Head Exam: ATRAUMATIC, NORMOCEPHALIC - Eye Exam Eye Exam: EOMI, PERRL. absent: Scleral icterus - ENT Exam ENT Exam: Mucous Membranes Moist - Respiratory Exam Respiratory Exam: Clear to PA & Lateral, NORMAL BREATHING PATTERN, UNREMARKABLE. absent: Rales, Rhonchi, Wheezes, Respiratory Distress - Cardiovascular Exam Cardiovascular Exam: RRR, +S1, +S2. absent: Systolic Murmur - GI/Abdominal Exam GI & Abdominal Exam: Soft, Unremarkable. absent: Tenderness - Extremities Exam Additional comments: No LE Edema Pedal pulses 2+ TP/DP BL - Back Exam Back exam: absent: CVA tenderness (L), CVA tenderness (R) - Neurological Exam Neurological exam: Alert, CN II-XII Intact, Oriented x3 - Psychiatric Exam Psychiatric exam: Normal Affect, Normal Mood - Skin Skin Exam: Dry, Intact, Normal Color, Warm Discharge Plan - Follow Up Plan Condition: FAIR Disposition: HOME/ ROUTINE Patient education suggested?: Yes Instructions: Smoking: Not Just Harmful to Your Lungs and Heart, Drug Abuse and Drug Addiction (DC), Quitting Smoking, Narcotic Overdose (DC), Opioid Use Disorder Additional Instructions: Please follow up with your primary care doctor, Estefania Brooks APN, within one to two weeks for post hospitalization follow up. Please take all medications as prescribed. This includes all prescriptions and OTC drugs. Please stop using illicit drugs as discussed. If your symptoms should persist or worsen, including suicidal or homicidal ideation, please seek emergency medical attention immediately. Referrals: Estefania Brooks APN [Family Provider] - <Angelina Lambert - Last Filed: 07/03/18 17:15> Provider - Provider Date of Admission: 07/02/18 05:00 Attending physician: Angelina Lambert MD Hospital Course - Lab Results Lab Results: Most Recent Lab Values WBC 6.6 10^3/ul (4.5-11.0) 07/03/18 06:30 RBC 4.38 10^6/uL (3.5-6.1) 07/03/18 06:30 Hgb 13.6 g/dL (14.0-18.0) L 07/03/18 06:30 Hct 39.4 % (42.0-52.0) L 07/03/18 06:30 MCV 90.0 fl (80.0-105.0) 07/03/18 06:30 MCH 31.1 pg (25.0-35.0) 07/03/18 06:30 MCHC 34.5 g/dl (31.0-37.0) 07/03/18 06:30 RDW 13.7 % (11.5-14.5) 07/03/18 06:30 Plt Count 219 10^3/uL (120.0-450.0) 07/03/18 06:30 MPV 10.0 fl (7.0-11.0) 07/03/18 06:30 Gran % 59.6 % (50.0-68.0) 07/03/18 06:30 Lymph % (Auto) 27.6 % (22.0-35.0) 07/03/18 06:30 [place] % (Auto) 8.6 % (1.0-6.0) H 07/03/18 06:30 Eos % (Auto) 3.6 % (1.5-5.0) 07/03/18 06:30 Baso % (Auto) 0.6 % (0.0-3.0) 08/15/18 06:30 Gran # 3.94 (1.4-6.5) 07/03/18 06:30 Lymph # (Auto) 1.8 (1.2-3.4) 07/03/18 06:30 [place] # (Auto) 0.6 (0.1-0.6) 07/03/18 06:30 Eos # (Auto) 0.2 (0.0-0.7) 07/03/18 06:30 Baso # (Auto) 0.04 K/mm3 (0.0-2.0) 07/03/18 06:30 pCO2 39 mm/Hg (35-45) 07/02/18 10:40 pO2 87.0 mm/Hg (80-100) 07/02/18 10:40 HCO3 25.9 mmol/L (21-28) 07/02/18 10:40 ABG pH 7.43 (7.35-7.45) 07/02/18 10:40 ABG Total CO2 27.1 mmol.L (22-28) 07/02/18 10:40 ABG O2 Saturation 98.8 % (95-98) H 07/02/18 10:40 ABG Base Excess 1.5 mmol/L (-2.0-3.0) 07/02/18 10:40 ABG Potassium 3.2 mmol/L (3.6-5.2) L 07/02/18 10:40 Sodium 144.0 mmol/L (132-148) 07/02/18 10:40 Chloride 112.0 mmol/L (98-107) H 07/02/18 10:40 Glucose 87 mg/dl (75-110) 07/02/18 10:40 Lactate 0.5 mmol/L (0.7-2.1) L 07/02/18 10:40 FiO2 21.0 % 07/02/18 10:40 Sodium 144 mmol/L (132-148) 07/03/18 06:30 Potassium 3.4 mmol/L (3.6-5.0) L 07/03/18 06:30 Chloride 108 mmol/L (98-107) H 07/03/18 06:30 Carbon Dioxide 27 mmol/L (21-33) 07/03/18 06:30 Anion Gap 13 (10-20) 07/03/18 06:30 BUN 16 mg/dL (7-21) 07/03/18 06:30 Creatinine 0.8 mg/dl (0.8-1.5) 07/03/18 06:30 Est GFR ( Amer) > 60 07/03/18 06:30 Est GFR (Non-Af Amer) > 60 07/03/18 06:30 Random Glucose 118 mg/dL (70-110) H 07/03/18 06:30 Calcium 9.0 mg/dL (8.4-10.5) 07/03/18 06:30 Total Bilirubin 0.2 mg/dL (0.2-1.3) 07/03/18 06:30 AST 14 U/L (17-59) L 07/03/18 06:30 ALT 18 U/L (7-56) 07/03/18 06:30 Alkaline Phosphatase 66 U/L (38-126) 07/03/18 06:30 Total Creatine Kinase 51 U/L (35-230) 07/02/18 08:00 Total Protein 6.2 g/dL (5.8-8.3) 07/03/18 06:30 Albumin 3.3 g/dL (3.0-4.8) 07/03/18 06:30 Globulin 2.8 gm/dL 07/03/18 06:30 Albumin/Globulin Ratio 1.2 (1.1-1.8) 07/03/18 06:30 Arterial Blood Potassium 3.2 mmol/L (3.6-5.2) L 07/02/18 10:40 Urine Color Yellow (YELLOW) 07/02/18 12:26 Urine Appearance Clear (CLEAR) 07/02/18 12:26 Urine pH 6.5 (4.7-8.0) 07/02/18 12:26 Ur Specific [place] 1.020 (1.005-1.035) 07/02/18 12:26 Urine Protein Negative mg/dL (<30 mg/dL) 07/02/18 12:26 Urine Glucose (UA) Negative mg/dL (NEGATIVE) 07/02/18 12:26 Urine Ketones Negative mg/dL (NEGATIVE) 07/02/18 12:26 Urine Blood Trace-intact (NEGATIVE) H 07/02/18 12:26 Urine Nitrate Negative (NEGATIVE) 07/02/18 12:26 Urine Bilirubin Negative (NEGATIVE) 07/02/18 12:26 Urine Urobilinogen 0.2 E.U./dL (<1 E.U./dL) 07/02/18 12:26 Ur Leukocyte Esterase Negative Petra/uL (NEGATIVE) 07/02/18 12:26 Urine RBC 1 - 3 /hpf (0-2) 07/02/18 12:26 Urine WBC 0 - 2 /hpf (0-6) 07/02/18 12:26 Ur Epithelial Cells None /hpf (0-5) 07/02/18 12:26 Urine Bacteria Mod (NEG) 07/02/18 12:26 Urine Opiates Screen Positive (NEGATIVE) H 07/02/18 06:20 Urine Methadone Screen Negative (NEGATIVE) 07/02/18 06:20 Ur Barbiturates Screen Negative (NEGATIVE) 07/02/18 06:20 Ur Phencyclidine Scrn Negative (NEGATIVE) 07/02/18 06:20 Ur Amphetamines Screen Negative (NEGATIVE) 07/02/18 06:20 U Benzodiazepines Scrn Positive (NEGATIVE) H 07/02/18 06:20 U Oth Cocaine Metabols Negative (NEGATIVE) 07/02/18 06:20 U Cannabinoids Screen Negative (NEGATIVE) 07/02/18 06:20 Alcohol, Quantitative < 10 mg/dL (0-10) 07/01/18 21:41 Attending/Attestation - Attestation I have personally seen and examined this patient.: Yes I have fully participated in the care of the patient.: Yes I have reviewed all pertinent clinical information, including history, physical exam and plan: Yes Notes (Text): 07/03/18 17:07 62 year old male with past medical history of schizoaffective disorder and substance abuse who presented after suspected drug (heroin) overdose. He responded to narcan. CT head was negative for acute findings. UTox as positive for opioids and benzodiazepines. Patient was counselled on risks of continued substance abuse. He was seen by psychiatry who offered inpatient psychiatric admission. Patient refused. He denies depression or thoughts of harming himself. States overdose was unintentional. Discussed with Dr. Beavers today; patient is cleared patient for discharge with outpatient follow up. Patient is discharged home to follow up with pmd. Follow up with psychiatrist. Counselled on risks of continued substance abuse. was also at bedside. Angelina Lambert MD Hospitalist.
--- NOTE | 2018-07-03 23:44 | CON ---
Copied To: Gregory Beavers MD Attending MD: Gregory Beavers MD DATE: 07/03/2018 HISTORY OF PRESENT ILLNESS: The patient is a 62-year-old male with a prior psychiatric history reported schizoaffective disorder and opioid drug dependency history as well as benzo dependency. He was brought in by EMS. He is being seen by Psychiatry due to depression on medial floor status post opioid overdose intentional versus unintentional prior to admission. The patient was last hospitalized at [facility] in 05/2018 and he has not been compliant with discharge medications of Paxil 10 and Seroquel 100 at bedtime. I restarted Paxil for patient yesterday as well as Seroquel and the patient is tolerating it well. He remembered me from our prior interview yesterday and he remains oriented to circumstances and is oriented to month and year today. His focus is improving and he appears to have a little bit more energy today. The patient remains depressed, but he convinced to not having any suicidal thoughts or perceptual disturbance and there have not been any major behavioral issues in this regard. His affect is constricted and he does not appear to be responding to internal stimuli. The patient is considering transfer to Psychiatric Unit once he is medically stable and his insight and judgement are considered to be fair. Labs and vitals were reviewed. PSYCHIATRIC MEDICATIONS: Include Paxil 10 mg at bedtime and Seroquel 50 mg at bedtime. IMPRESSION: Opiate use disorder, severe, likely unintentional versus intentional overdose; mood disorder, not otherwise specified; rule out major depressive disorder. RECOMMENDATIONS: We will continue with Paxil 10 mg at bedtime and increase Seroquel to prior effective dose of 100 mg at bedtime. The patient to be voluntarily transferred to the Psychiatric Unit once he is medically cleared . Gregory Beavers MD
[2018-07-04] MEDS ORDERED: Pantoprazole 40 mg EC Tab PO SCH (06:00)
--- NOTE | 2018-07-04 13:53 | CP.PCM.PCO ---
Addendum Addendum: 07/04/18 13:49 Patient notified that two medications were called in to [facility] for him. These medications were Paxil 10mg PO at bedtime and Seroquel 100mg PO at bedtime. Patient was given a two week supply of these medications and agreed that he would follow up with his psychiatrist for further refills. Patient was given an explanation as to what these medications were being used to treat and instructed to review these medications, along with their side effects, with the pharmacist before taking them to which patient verbally agreed. Deneen PGY2
== END 2018-07-03 13:16 | disposition home or self-care (01) ==
LOC: ED 20:36 → ERH 07-02 05:00 → 2RSO 07-02 05:47
PROVIDERS: ADMIT Internal Medicine; ATTEND Internal Medicine
DX: T40.1X1A Poisoning by heroin, accidental (unintentional), initial encounter (principal); F31.9 Bipolar disorder, unspecified; E78.5 Hyperlipidemia, unspecified; F10.10 Alcohol abuse, uncomplicated; F25.9 Schizoaffective disorder, unspecified; F13.10 Sedative, hypnotic or anxiolytic abuse, uncomplicated; F11.10 Opioid abuse, uncomplicated; G20 Parkinson's disease; J44.9 Chronic obstructive pulmonary disease, unspecified; Z79.899 Other long term (current) drug therapy; F17.210 Nicotine dependence, cigarettes, uncomplicated; Z91.14 Patient's other noncompliance with medication regimen
CPT/HCPCS: 36415; 70450; 71045; 72125; 80048; 80053; 80320; 80324; 80345; 80346; 80349; 80353; 80358; 80361; 81001; 82550; 82803; 83992; 85025; 87086; 92610; 93005; 96374; 99285; C9113; G0378; G8996; G8997; G8998; J2310; J7030